=== PATIENT | female | born 1940 | race Caucasian/White ===

== ENCOUNTER 2017-02-10 11:30 | Day surgery (SDC) | payer MEDICARE ==
[2017-02-10] MEDS ORDERED: LIDOCAINE 1% 20 ML VIAL (10MG/ML) FOR IV START INTRADERMA ONE (12:45)
[2017-02-10 12:48] LABS: Glucose,Whole Blood 101 mg/dL (75-99)
[2017-02-10] MEDS ORDERED: KETOROLAC 30 MG/ML 1 ML VIAL ONE (12:51)
[2017-02-10] MEDS ORDERED: PROPOFOL 10 MG/ML 20 ML VIAL IV ONE (12:51)
[2017-02-10] MEDS ORDERED: LACTATED RINGERS 1,000 ML IV ONE (12:52)
[2017-02-10 12:54] VITALS: TEMP 98.8
[2017-02-10 13:31] VITALS: RESP 18
[2017-02-10 14:05] VITALS: BP 134/75; PULSE 65
[2017-02-10 15:26] LABS: Basophils % (A) 1 %; CH 27.6; CHCM 33.3; Eosinophils # (A) 0.1 k/uL (0-0.7); Eosinophils % (A) 2 %; HCT 34.1 % (34.0-46.0); HDW 2.86; HGB 11.7 gm/dL (11.4-16.0); Luc # (Auto) 0.08; Luc % (Auto) 3; Lymphocytes # (A) 0.9 k/uL (1.0-4.8); Lymphocytes % (A) 29 %; MCH 28.6 pg (25.0-35.0); MCHC 34.3 g/dL (31.0-37.0); MCV 83.2 fL (80.0-100.0); Monocytes # (A) 0.2 k/uL (0-1.0); Monocytes % (A) 6 %; Neutrophils # (A) 1.9 k/uL (1.3-7.7); Neutrophils % (A) 60 %; RBC 4.09 m/uL (3.80-5.40); RDW 14.1 % (11.5-15.5); WBC 3.2 k/uL (3.8-10.6); WBC (Perox) 2.84
--- NOTE | 2017-02-11 07:37 | PCN ---
DATE OF PROCEDURE: 02/10/2017 PROCEDURE: Bone marrow aspirate and biopsy. INDICATION: Pancytopenia. After obtaining consent from the patient, the procedure was performed in the endoscopy suite under general anesthesia performed by anesthesia team. The patient was put in the left lateral decubitus position. Right posterior iliac crest was localized. The skin was cleansed with ChloraPrep. All ( ) procedures were followed and 2 mL of 2% Xylocaine was used for local anesthetic. A 5-inch Jamshidi needle was inserted, about 15 mL of aspirate and 1 cm core biopsy was obtained without any difficulties. Pressure applied afterward. There was negligible blood loss. Patient tolerated the procedure very well without any immediate complications.
== END 2017-02-10 14:47 | disposition home or self-care (01) ==
LOC: OR 11:30
PROVIDERS: ATTEND Internal Medicine Hematology & Oncology
DX: D69.6 Thrombocytopenia, unspecified (principal); D75.89 Other specified diseases of blood and blood-forming organs; D72.819 Decreased white blood cell count, unspecified; E11.9 Type 2 diabetes mellitus without complications; Z79.4 Long term (current) use of insulin; E66.3 Overweight; Z68.41 Body mass index [BMI] 40.0-44.9, adult; Z71.3 Dietary counseling and surveillance; I10 Essential (primary) hypertension; E78.5 Hyperlipidemia, unspecified; F32.9 Major depressive disorder, single episode, unspecified; M19.90 Unspecified osteoarthritis, unspecified site; K21.9 Gastro-esophageal reflux disease without esophagitis; Z79.52 Long term (current) use of systemic steroids; Z79.899 Other long term (current) drug therapy; Z88.0 Allergy status to penicillin; Z91.09 Other allergy status, other than to drugs and biological substances
CPT/HCPCS: 85025; 38221; J1885; J2704; G0364

== ENCOUNTER → 2020-12-14 | Outpatient (CLI) | payer MEDICARE ==
--- NOTE | 2020-12-14 14:25 | CT ---
EXAMINATION TYPE: CT brain wo con DATE OF EXAM: 12/14/2020 COMPARISON: None INDICATION: Syncope, fall, bruise right forehead DLP: 1121 mGycm, Automated exposure control for dose reduction was used. CONTRAST: None CT of the brain is performed utilizing 3 mm thick sections through the posterior fossa and 3 mm thick sections through the remaining calvarium. Study is performed within 24 hours of arrival to the hosp [facility]. No abnormal hyperdensity is present to suggest an acute intracranial hemorrhage. No mass lesion is evident. No acute infarcts are evident. Ventricles and sulci are appropriate for the patient age. Paranasal sinuses and mastoid air cells within the [id number] are clear. Hyperostosis frontalis internus is present, a normal variant. No acute fractures are evident. IMPRESSIONS: 1. No acute intracranial process.
== END ==
LOC: RADCTMAIN 09:33
PROVIDERS: ATTEND Nurse Practitioner Family
DX: R55 Syncope and collapse (principal); S06.2X0D Diffuse traumatic brain injury without loss of consciousness, subsequent encounter
CPT/HCPCS: 70450

== ENCOUNTER 2020-12-18 17:32 | Emergency (ER) | payer MEDICARE ==
[2020-12-18] MEDS ORDERED: IBUPROFEN 600 MG TAB PO STA (20:06)
[2020-12-18] MEDS ORDERED: SODIUM CHLORIDE 0.9% 1,000 ML IV STA (20:06)
[2020-12-18] MEDS ORDERED: ACETAMINOPHEN TAB 325 MG TAB PO STA (20:06)
--- NOTE | 2020-12-18 20:15 | ED ---
General Adult HPI - General Chief complaint: Fever Stated complaint: N&D/Cough/Chest tightness Source: patient, RN notes reviewed Mode of arrival: ambulatory Limitations: no limitations - History of Present Illness Initial comments: Patient is an 80-year-old female that presents to emergency department with a cough for approximately one week. She notes that she doesn't have the best memory of her symptoms and that we should ask her daughter if she still has been watching her. She has not been tested for Covid yet. She notes that she's had an irritating cough that been nonproductive. She notes that she did have diarrhea for a couple days approximately 3 days ago. She was in no apparent distress or pain while laying in bed during the exam and interview. She denied any pain currently. She denied any chest pain headache nausea vomiting diarrhea constipation fatigue chills - Related Data Home Medications Medication Instructions Recorded Confirmed ALPRAZolam [Xanax] 0.25 mg PO BID PRN 02/10/17 02/10/17 Hydrocortisone Cream 1 applicate TOPICAL DAILY PRN 02/10/17 02/10/17 [Hydrocortisone 2.5% Cream] Levothyroxine Sodium [Levoxyl] 1 tab PO DAILY 02/10/17 02/10/17 Loratadine 10 mg PO DAILY 02/10/17 02/10/17 Nystatin 100,000 Unit/gm Powd 1 applicate TOPICAL DAILY PRN 02/10/17 02/10/17 [Mycostatin Powder] Omeprazole 20 mg PO DAILY 02/10/17 02/10/17 Sertraline [Zoloft] 100 mg PO DAILY 02/10/17 02/10/17 Simvastatin [Zocor] 20 mg PO DAILY 02/10/17 02/10/17 lisinopriL [Zestril] 2.5 mg PO DAILY 02/10/17 02/10/17 metFORMIN HCL [Glucophage] 1 tab PO DAILY 02/10/17 02/10/17 traMADol HCL [Ultram] 50 mg PO TID PRN 02/10/17 02/10/17 Allergies Allergy/AdvReac Type Severity Reaction Status Date / Time adhesive tape Allergy Rash/Hives Verified 12/18/20 18:02 tetanus and diphtheria Allergy Swelling Verified 12/18/20 18:02 toxoids PCN Allergy Rash/Hives Uncoded 03/23/21 18:02 Review of Systems ROS Statement: Those systems with pertinent positive or pertinent negative responses have been documented in the HPI. ROS Other: All systems not noted in ROS Statement are negative. Past Medical History Past Medical History: Diabetes Mellitus, Eye Disorder, Hearing Disorder / Deafness, Hypertension, Thyroid Disorder Additional Past Medical History / Comment(s): WEARS GLASSES, HX BRONCHITIS, HARD OF HEARING, ARTHRITIS IN BACK History of Any Multi-Drug Resistant Organisms: None Reported Past Surgical History: Cholecystectomy, Orthopedic Surgery Additional Past Surgical History / Comment(s): EXPLORATORY AFTER GALLBLADDER- 1969, TOTAL RT KNEE, TOTAL LT KNEE, ROTATOR CUFF RT SHOULDER, CYSTS REMOVED LT WRIST, HIGH CHOLESTEROL, PANCYTOPENIA Past Psychological History: Depression Smoking Status: Never smoker Past Alcohol Use History: Rare Past Drug Use History: None Reported General Exam Limitations: no limitations General appearance: alert, in no apparent distress Head exam: Present: atraumatic, normocephalic, normal inspection Eye exam: Present: normal appearance, PERRL, EOMI. Absent: scleral icterus, conjunctival injection, periorbital swelling ENT exam: Present: normal exam, mucous membranes moist Neck exam: Present: normal inspection. Absent: tenderness, meningismus, ly mphadenopathy Respiratory exam: Present: normal lung sounds bilaterally. Absent: respiratory distress, wheezes, rales, rhonchi, stridor Cardiovascular Exam: Present: regular rate, normal rhythm, normal heart sounds. Absent: systolic murmur, diastolic murmur, rubs, gallop, clicks GI/Abdominal exam: Present: soft, normal bowel sounds. Absent: distended, tenderness, guarding, rebound, rigid Extremities exam: Present: normal inspection, full ROM, normal capillary refill. Absent: tenderness, pedal edema, joint swelling, calf tenderness Neurological exam: Present: alert, oriented X3, CN II-XII intact Psychiatric exam: Present: normal affect, normal mood Skin exam: Present: warm, dry, intact, normal color, other (Patient has several bruises over her body from a recent fall.). Absent: rash Course Vital Signs 12/18/20 12/18/20 17:57 20:41 Temperature 101.4 F H Pulse Rate 107 H 128 H Respiratory 18 20 Rate Blood Pressure 129/85 139/99 O2 Sat by Pulse 93 L 93 L Oximetry EKG Findings - EKG Comments: EKG Findings:: Ventricular rate 125 bpm, QR shinto 102 ms, QT/QTC 328/433 ms, PRT axes */-29/149. Atrial fibrillation with rapid ventricular response, incomplete right bundle branch block, septal infarct, age undetermined, T-wave abnormality, consider lateral ischemia, abnormal ECG. Medical Decision Making - Medical Decision Making 80-year-old female presented emergency with the cough for approximately one week. Fever of 101.4, 650 mg of Tylenol and 600 mg of Motrin ordered. Labs, chest x-ray, EKG, 1 L of normal saline ordered. Covid positive. Case discussed with Dr. Ewing, patient can discharge home with conservative management. Patient declined wanting to monoclonal antibody treatment. - Lab Data Result diagrams: 12/18/20 20:41 12/18/20 20:41 Lab Results 12/18/20 12/18/20 12/18/20 Range/Units 20:41 20:41 20:41 WBC 2.8 L (3.8-10.6) k/uL RBC 4.37 (3.80-5.40) m/uL Hgb 11.9 (11.4-16.0) gm/dL Hct 38.3 (34.0-46.0) % MCV 87.6 (80.0-100.0) fL MCH 27.4 (25.0-35.0) pg MCHC 31.2 (31.0-37.0) g/dL RDW 14.7 (11.5-15.5) % Plt Count 67 L (150-450) k/uL MPV 8.7 Neutrophils % 63 % Lymphocytes % 29 % Monocytes % 6 % Eosinophils % 0 % Basophils % 0 % Neutrophils # 1.8 (1.3-7.7) k/uL Lymphocytes # 0.8 L (1.0-4.8) k/uL Monocytes # 0.2 (0-1.0) k/uL Eosinophils # 0.0 (0-0.7) k/uL Basophils # 0.0 (0-0.2) k/uL Manual Slide Review Performed RBC Morphology Normal Sodium 132 L (137-145) mmol/L Potassium 3.7 (3.5-5.1) mmol/L Chloride 100 (98-107) mmol/L Carbon Dioxide 21 L (22-30) mmol/L Anion Gap 11 mmol/L BUN 27 H (7-17) mg/dL Creatinine 1.27 H (0.52-1.04) mg/dL Est GFR (CKD-EPI)AfAm 46 (>60 ml/min/1.73 sqM) Est GFR (CKD-EPI)NonAf 40 (>60 ml/min/1.73 sqM) Glucose 97 (74-99) mg/dL Calcium 8.7 (8.4-10.2) mg/dL Total Bilirubin 1.9 H (0.2-1.3) mg/dL AST 58 H (14-36) U/L ALT 22 (4-34) U/L Alkaline Phosphatase 95 (38-126) U/L Total Protein 7.6 (6.3-8.2) g/dL Albumin 4.0 (3.5-5.0) g/dL Coronavirus (PCR) Detected A (Not Detectd) - EKG Data -: EKG Interpreted by [facility] EKG Comments: Ventricular rate 125 bpm, QR shinto 102 ms, QT/QTC 328/433 ms, P-R-T axes */-29/149. Atrial fibrillation with rapid ventricular response, incomplete right bundle branch block, septal infarct, age undetermined, T-wave abnormality, consider lateral ischemia, abnormal ECG. - Radiology Data Radiology results: report reviewed, image reviewed Chest x-ray: There is moderate interstitial edema superimposed hazy opacities. No pleural effusion or pneumothorax seen. The cardiac silhouette size is mildly enlarged. Osseous structures are intact. Disposition Clinical Impression: COVID-19 Disposition: HOME SELF-CARE Condition: Stable Instructions (If sedation given, give patient instructions): Fever in Adults (ED), Coronavirus Disease 2019 (COVID-19) Additional Instructions: Please return to the Emergency Department if symptoms worsen or any other concerns. Follow-up with primary care in 3-5 days. Per CDC guidelines quarantine for 10-14 days. Use [id number] anti-inflammatories for symptomatic and fever control. Increase oral fluid intake to at least 100 ounces. Is patient prescribed a controlled substance at d/c from ED?: No Referrals: Deena Monsalve MD [Primary Care Provider] - 1-2 days Time of Disposition: 21:44
[2020-12-18 20:52] LABS: Basophils % (A) 0 %; Eosinophils % (A) 0 %; HCT 38.3 % (34.0-46.0); HGB 11.9 gm/dL (11.4-16.0); Lymphocytes # (A) 0.8 k/uL (1.0-4.8); Lymphocytes % (A) 29 %; MCH 27.4 pg (25.0-35.0); MCHC 31.2 g/dL (31.0-37.0); MCV 87.6 fL (80.0-100.0); Mean Platelet Volume 8.7; Monocytes # (A) 0.2 k/uL (0-1.0); Monocytes % (A) 6 %; Neutrophils # (A) 1.8 k/uL (1.3-7.7); Neutrophils % (A) 63 %; RBC 4.37 m/uL (3.80-5.40); RDW 14.7 % (11.5-15.5); WBC 2.8 k/uL (3.8-10.6)
[2020-12-18 21:01] LABS: Calcium 8.7 mg/dL (8.4-10.2); Potassium 3.7 mmol/L (3.5-5.1); Total Bilirubin 1.9 mg/dL (0.2-1.3); Total Protein 7.6 g/dL (6.3-8.2)
--- NOTE | 2020-12-18 21:03 | XR ---
EXAMINATION TYPE: XR chest 2V DATE OF EXAM: 12/18/2020 COMPARISON: NONE HISTORY: Cough and fever. TECHNIQUE: Frontal and lateral views of the chest are obtained. FINDINGS: There is moderate interstitial edema with superimposed hazy opacities. No pleural effusion , or pneumothorax seen. The cardiac silhouette size is mildly enlarged. The osseous structures are intact. IMPRESSION: Interstitial edema with superimposed infiltrates not excluded.
[2020-12-18 21:20] LABS: Platelet Count 67 k/uL (150-450)
[2020-12-18 21:54] VITALS: TEMP 99.5
[2020-12-18 22:48] VITALS: BP 100/67; PULSE 103; RESP 16
== END 2020-12-18 22:50 | disposition home or self-care (01) ==
LOC: EC 17:32
DX: U07.1 COVID-19 (principal); E11.9 Type 2 diabetes mellitus without complications; I10 Essential (primary) hypertension; H91.90 Unspecified hearing loss, unspecified ear; E78.00 Pure hypercholesterolemia, unspecified; F32.9 Major depressive disorder, single episode, unspecified
CPT/HCPCS: 71046; 80053; 85025; 87635; 93005; 96360; 99284

== ENCOUNTER 2020-12-25 13:58 | Inpatient (IN) | payer MEDICARE ==
[2020-12-25] MEDS ORDERED: DILTIAZEM DRIP BOLUS FROM BAG 1 MG SOLN IV ONE (14:08)
[2020-12-25] MEDS ORDERED: SODIUM CHLORIDE 0.9% 1,000 ML IV STA ×2 (14:08)
[2020-12-25] MEDS: DILTIAZEM 125 MG in SODIUM CHLORIDE 0.9% 100 ML IV SCH (14:22)
--- NOTE | 2020-12-25 14:31 | ED ---
Weakness HPI - General Chief complaint: Weakness Stated complaint: Afib/RVR Covid+ Time Seen by Provider: 12/25/20 14:00 Source: patient, EMS, RN notes reviewed, old records reviewed Mode of arrival: EMS Limitations: no limitations - History of Present Illness Initial comments: This 80-year-old female who presents by EMS complaints of weakness unable to walk very well feeling thrive 90 very well she was diagnosed with Covid 19 about a week ago at this facility. She was brought in by EMS and noted to be in atrial fibrillation with rapid ventricular response. She is not sure if she is ever had this before she denies any chest pain this weakness some shortness of breath. She also states she fell about 2-3 weeks ago and does have some bruising to her right chest wall and right arm as well as she states she has a lot of bruising to her lower extremities. He relates this to her diabetes. MD Complaint: generalized weakness - Related Data Home Medications Medication Instructions Recorded Confirmed ALPRAZolam [Xanax] 0.25 mg PO BID PRN 02/10/17 12/25/20 Levothyroxine Sodium [Levoxyl] 125 mcg PO DAILY 02/10/17 12/25/20 Omeprazole 20 mg PO DAILY 02/10/17 12/25/20 Simvastatin [Zocor] 20 mg PO DAILY 02/10/17 12/25/20 metFORMIN HCL [Glucophage] 500 mg PO DAILY 02/10/17 12/25/20 traMADol HCL [Ultram] 50 mg PO TID PRN 02/10/17 12/25/20 Albuterol Sulfate [Ventolin HFA] 2 puff INHALATION RT-Q4H PRN 12/25/20 12/25/20 Aspirin EC [Ecotrin Low Dose] 81 mg PO DAILY 12/25/20 12/25/20 Benzonatate [Tessalon Perles] 100 mg PO TID PRN 12/25/20 12/25/20 Citalopram Hydrobromide [CeleXA] 20 mg PO DAILY 12/25/20 12/25/20 Furosemide [Lasix] 20 mg PO DAILY 12/25/20 12/25/20 Triamcinolone 0.1% Cream [Kenalog 1 applicatio TOPICAL TID 12/25/20 12/25/20 0.1% Cream] lisinopriL [Zestril] 5 mg PO DAILY 12/25/20 12/25/20 Allergies Allergy/AdvReac Type Severity Reaction Status Date / Time adhesive tape Allergy Rash/Hives Verified 12/25/20 15:48 tetanus and diphtheria Allergy Swelling Verified 12/25/20 15:48 toxoids PCN Allergy Rash/Hives Uncoded 12/25/20 14:13 Review of Systems ROS Statement: Those systems with pertinent positive or pertinent negative responses have been documented in the HPI. ROS Other: All systems not noted in ROS Statement are negative. Past Medical History Past Medical History: Diabetes Mellitus, Eye Disorder, Hearing Disorder / Deafness, Hypertension, Thyroid Disorder Additional Past Medical History / Comment(s): WEARS GLASSES, HX BRONCHITIS, HARD OF HEARING, ARTHRITIS IN BACK History of Any Multi-Drug Resistant Organisms: None Reported Past Surgical History: Cholecystectomy, Orthopedic Surgery Additional Past Surgical History / Comment(s): EXPLORATORY AFTER GALLBLADDER- 1969, TOTAL RT KNEE, TOTAL LT KNEE, ROTATOR CUFF RT SHOULDER, CYSTS REMOVED LT WRIST, HIGH CHOLESTEROL, PANCYTOPENIA Past Psychological History: Depression Smoking Status: Never smoker Past Alcohol Use History: None Reported Past Drug Use History: None Reported General Exam - General Exam Comments Initial Comments: This is a well-developed well-nourished awake alert oriented 3 female Limitations: no limitations General appearance: alert, in no apparent distress Head exam: Present: atraumatic, normocephalic, normal inspection Eye exam: Present: normal appearance, PERRL, EOMI. Absent: scleral icterus, conjunctival injection, periorbital swelling ENT exam: Present: mucous membranes dry Neck exam: Present: normal inspection, full ROM, other (No stridor JVD or bruits). Absent: tenderness, meningismus, lymphadenopathy Respiratory exam: Present: normal lung sounds bilaterally, chest wall tenderness (Excessive bruising seen to the right anterior chest wall as well as right arm proximally. No overt step-off or crepitation 4H Aubrey the right shoulder.), other. Absent: respiratory distress, wheezes, rales, rhonchi, stridor Cardiovascular Exam: Present: tachycardia, irregular rhythm. Absent: systolic murmur, diastolic murmur, rubs, gallop, clicks GI/Abdominal exam: Present: soft, normal bowel sounds. Absent: distended, tenderness, guarding, rebound, rigid Extremities exam: Present: full ROM, normal capillary refill, other (Or show any bruising noted.). Absent: tenderness, pedal edema, joint swelling, calf tenderness Back exam: Present: normal inspection Neurological exam: Present: alert, oriented X3, CN II-XII intact Psychiatric exam: Present: normal affect, normal mood Skin exam: Present: warm, dry, intact, other (As noted above). Absent: rash Course Vital Signs 12/25/20 12/25/20 14:06 16:01 Temperature 98.3 F Pulse Rate 128 H 105 H Respiratory 20 18 Rate Blood Pressure 143/100 131/76 O2 Sat by Pulse 96 96 Oximetry - Reevaluation(s) Reevaluation #1: 12/25/20 16:36 Patient still persists in atrial fibrillation. He admitted I did discuss case with Dr. Doherty Reevaluation #2: 12/25/20 16:37 Does have elevated d-dimer a CT is pending. Reevaluation #3: 12/25/20 16:38 Patient believes she may have a contrast reaction with a premedication. EKG Findings - EKG Results: EKG: interpreted by [facility] (Atrial fibrillation rate of 126 QRS 94 QT since QTC 328/[address]-T wave configuration) Medical Decision Making - Lab Data Result diagrams: 12/25/20 14:35 12/25/20 14:35 Lab Results 12/25/20 12/25/20 12/25/20 Range/Units 14:35 14:35 14:35 WBC 3.4 L (3.8-10.6) k/uL RBC 4.48 (3.80-5.40) m/uL Hgb 13.4 (11.4-16.0) gm/dL Hct 39.1 (34.0-46.0) % MCV 87.3 (80.0-100.0) fL MCH 29.9 (25.0-35.0) pg MCHC 34.3 (31.0-37.0) g/dL RDW 15.0 (11.5-15.5) % Plt Count 125 L D (150-450) k/uL MPV 8.7 Neutrophils % 65 % Lymphocytes % 24 % Monocytes % 5 % Eosinophils % 1 % Basophils % 1 % Neutrophils # 2.2 (1.3-7.7) k/uL Lymphocytes # 0.8 L (1.0-4.8) k/uL Monocytes # 0.2 (0-1.0) k/uL Eosinophils # 0.0 (0-0.7) k/uL Basophils # 0.0 (0-0.2) k/uL PT 12.4 H (9.0-12.0) sec INR 1.2 H (<1.2) APTT 24.0 (22.0-30.0) sec D-Dimer 14.61 H (<0.60) mg/L FEU Sodium 138 (137-145) mmol/L Potassium 3.6 (3.5-5.1) mmol/L Chloride 102 (98-107) mmol/L Carbon Dioxide 26 (22-30) mmol/L Anion Gap 10 mmol/L BUN 27 H (7-17) mg/dL Creatinine 1.10 H (0.52-1.04) mg/dL Est GFR (CKD-EPI)AfAm 55 (>60 ml/min/1.73 sqM) Est GFR (CKD-EPI)NonAf 48 (>60 ml/min/1.73 sqM) Glucose 97 (74-99) mg/dL Plasma Lactic Acid [place] (0.7-2.0) mmol/L Calcium 9.0 (8.4-10.2) mg/dL Magnesium 1.8 (1.6-2.3) mg/dL Total Bilirubin 1.9 H (0.2-1.3) mg/dL AST 38 H (14-36) U/L ALT 16 (4-34) U/L Alkaline Phosphatase 78 (38-126) U/L Lactate Dehydrogenase 824 H (313-618) U/L Creatine Kinase 71 (30-135) U/L Troponin I (0.000-0.034) ng/mL C-Reactive Protein 44.0 H (<10.0) mg/L Total Protein 7.4 (6.3-8.2) g/dL Albumin 3.6 (3.5-5.0) g/dL 12/25/20 12/25/20 Range/Units 14:35 14:35 WBC (3.8-10.6) k/uL RBC (3.80-5.40) m/uL Hgb (11.4-16.0) gm/dL Hct (34.0-46.0) % MCV (80.0-100.0) fL MCH (25.0-35.0) pg MCHC (31.0-37.0) g/dL RDW (11.5-15.5) % Plt Count (150-450) k/uL MPV Neutrophils % % Lymphocytes % % Monocytes % % Eosinophils % % Basophils % % Neutrophils # (1.3-7.7) k/uL Lymphocytes # (1.0-4.8) k/uL Monocytes # (0-1.0) k/uL Eosinophils # (0-0.7) k/uL Basophils # (0-0.2) k/uL PT (9.0-12.0) sec INR (<1.2) APTT (22.0-30.0) sec D-Dimer (<0.60) mg/L FEU Sodium (137-145) mmol/L Potassium (3.5-5.1) mmol/L Chloride (98-107) mmol/L Carbon Dioxide (22-30) mmol/L Anion Gap mmol/L BUN (7-17) mg/dL Creatinine (0.52-1.04) mg/dL Est GFR (CKD-EPI)AfAm (>60 ml/min/1.73 sqM) Est GFR (CKD-EPI)NonAf (>60 ml/min/1.73 sqM) Glucose (74-99) mg/dL Plasma Lactic Acid Wil[place] 1.5 (0.7-2.0) mmol/L Calcium (8.4-10.2) mg/dL Magnesium (1.6-2.3) mg/dL Total Bilirubin (0.2-1.3) mg/dL AST (14-36) U/L ALT (4-34) U/L Alkaline Phosphatase (38-126) U/L Lactate Dehydrogenase (313-618) U/L Creatine Kinase (30-135) U/L Troponin I <0.012 (0.000-0.034) ng/mL C-Reactive Protein (<10.0) mg/L Total Protein (6.3-8.2) g/dL Albumin (3.5-5.0) g/dL Critical Care Time Critical Care Time: Yes Total Critical Care Time: 37 Critical Care Time: Critical care time includes initial presentation with history physical labs x- rays discussed with paramedics upon arrival evaluation the patient response to therapy discussion with the admitting physician admission orders and documentation of the above Disposition Clinical Impression: Rapid atrial fibrillation, Dehydration, Failure to thrive in adult, COVID-19, Weakness Disposition: ADMITTED IP TO THIS [facility] Condition: Fair Referrals: Deena Monsalve MD [Primary Care Provider] - 1-2 days
[2020-12-25 14:39] LABS: Basophils % (A) 1 %; Eosinophils % (A) 1 %; HCT 39.1 % (34.0-46.0); HGB 13.4 gm/dL (11.4-16.0); Lymphocytes # (A) 0.8 k/uL (1.0-4.8); Lymphocytes % (A) 24 %; MCH 29.9 pg (25.0-35.0); MCHC 34.3 g/dL (31.0-37.0); MCV 87.3 fL (80.0-100.0); Mean Platelet Volume 8.7; Monocytes # (A) 0.2 k/uL (0-1.0); Monocytes % (A) 5 %; Neutrophils # (A) 2.2 k/uL (1.3-7.7); Neutrophils % (A) 65 %; RBC 4.48 m/uL (3.80-5.40); WBC 3.4 k/uL (3.8-10.6)
[2020-12-25 14:53] LABS: Albumin 3.6 g/dL (3.5-5.0); Magnesium 1.8 mg/dL (1.6-2.3); Platelet Count 125 k/uL (150-450); Potassium 3.6 mmol/L (3.5-5.1); Total Bilirubin 1.9 mg/dL (0.2-1.3); Total Protein 7.4 g/dL (6.3-8.2)
[2020-12-25 14:58] LABS: INR 1.2 (<1.2); Prothrombin Time 12.4 sec (9.0-12.0)
[2020-12-25 15:01] LABS: D-Dimer 14.61 mg/L FEU (<0.60)
--- NOTE | 2020-12-25 15:50 | XR ---
EXAMINATION TYPE: XR chest 2V DATE OF EXAM: 12/25/2020 COMPARISON: 12/18/2020 HISTORY: 80-year-old female dysrhythmia TECHNIQUE: AP and lateral views FINDINGS: Heart is enlarged. Diffuse interstitial and vascular prominence. No marcela consolidation or pleural ef fusion. 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 IMPRESSION: Cardiomegaly and interstitial/vascular prominence. Correlate for CHF with pulmonary vascular congesti on.
[2020-12-25] MEDS ORDERED: FAMOTIDINE 20 MG/2 ML VIAL IV STA (16:31)
[2020-12-25] MEDS ORDERED: diphenhydrAMINE 50 MG/ML 1 ML VIAL IVP STA (16:31)
[2020-12-25] MEDS ORDERED: methylPREDNISolone SOD SUCCI 125 MG/2 ML VIAL IV STA (16:31)
[2020-12-25] MEDS ORDERED: NALOXONE 0.4 MG/ML 1 ML VIAL IV PRN ×2 (16:39→18:01)
[2020-12-25] MEDS ORDERED: ALPRAZolam 0.25 MG TAB PO PRN (16:42)
[2020-12-25] MEDS ORDERED: ALBUTEROL HFA INHALER INHALATION PRN (16:42)
[2020-12-25] MEDS ORDERED: HEPARIN SODIUM,PORCINE 5,000 UNIT/ML 1 ML VIAL IV ONE (16:43)
[2020-12-25] MEDS ORDERED: HEPARIN SODIUM,PORCINE 5,000 UNIT/ML 1 ML VIAL IV PRN (16:43)
--- NOTE | 2020-12-25 17:39 | CT ---
EXAMINATION TYPE: CT angio chest DATE OF EXAM: 12/25/2020 COMPARISON: None HISTORY: elevated dimer CT DLP: 555.7 mGycm Automated exposure control for dose reduction was used. CONTRAST: Performed with IV Contrast, patient injected with 80 mL of Isovue 370. Images obtained from the thoracic inlet to the diaphragm with IV contrast. There are 3-D post process ing. FINDINGS: There is patchy peripheral pulmonary interstitial and airspace infiltrates. Heart is enlarged. There is no pericardial effusion. There is no pleural effusion. There are enlarged bronchial lymph nodes that measure up to 1.5 cm. There are multiple filling defects in the right lower lobe pulmonary artery. There is no mediastinal adenopathy. Thoracic aorta shows no dissection. Ascending aorta measures 3.8 cm. There is some spurring in the thoracic spine. IMPRESSION: Large embolism in the right lower lobe pulmonary artery. Cardiomegaly. I do not see convincing eviden ce for right heart strain. Extensive bilateral pulmonary airspace and interstitial infiltrates consistent with pneumonia. This exam was discussed with Dr. Olguin at 5:45 PM.
--- NOTE | 2020-12-25 17:44 | ED ---
Medical Decision Making - Medical Decision Making CT was reviewed and discussed with the radiologist patient does have evidence of a right pulmonary artery clot. Patient will be treated for this also. The admitting physicians made aware - Lab Data Result diagrams: 12/25/20 14:35 12/25/20 14:35 Lab Results 12/25/20 12/25/20 12/25/20 Range/Units 14:35 14:35 14:35 WBC 3.4 L (3.8-10.6) k/uL RBC 4.48 (3.80-5.40) m/uL Hgb 13.4 (11.4-16.0) gm/dL Hct 39.1 (34.0-46.0) % MCV 87.3 (80.0-100.0) fL MCH 29.9 (25.0-35.0) pg MCHC 34.3 (31.0-37.0) g/dL RDW 15.0 (11.5-15.5) % Plt Count 125 L D (150-450) k/uL MPV 8.7 Neutrophils % 65 % Lymphocytes % 24 % Monocytes % 5 % Eosinophils % 1 % Basophils % 1 % Neutrophils # 2.2 (1.3-7.7) k/uL Lymphocytes # 0.8 L (1.0-4.8) k/uL Monocytes # 0.2 (0-1.0) k/uL Eosinophils # 0.0 (0-0.7) k/uL Basophils # 0.0 (0-0.2) k/uL PT 12.4 H (9.0-12.0) sec INR 1.2 H (<1.2) APTT 24.0 (22.0-30.0) sec D-Dimer 14.61 H (<0.60) mg/L FEU Sodium 138 (137-145) mmol/L Potassium 3.6 (3.5-5.1) mmol/L Chloride 102 (98-107) mmol/L Carbon Dioxide 26 (22-30) mmol/L Anion Gap 10 mmol/L BUN 27 H (7-17) mg/dL Creatinine 1.10 H (0.52-1.04) mg/dL Est GFR (CKD-EPI)AfAm 55 (>60 ml/min/1.73 sqM) Est GFR (CKD-EPI)NonAf 48 (>60 ml/min/1.73 sqM) Glucose 97 (74-99) mg/dL Plasma Lactic Acid Wil[place] (0.7-2.0) mmol/L Calcium 9.0 (8.4-10.2) mg/dL Magnesium 1.8 (1.6-2.3) mg/dL Total Bilirubin 1.9 H (0.2-1.3) mg/dL AST 38 H (14-36) U/L ALT 16 (4-34) U/L Alkaline Phosphatase 78 (38-126) U/L Lactate Dehydrogenase 824 H (313-618) U/L Creatine Kinase 71 (30-135) U/L Troponin I (0.000-0.034) ng/mL C-Reactive Protein 44.0 H (<10.0) mg/L Total Protein 7.4 (6.3-8.2) g/dL Albumin 3.6 (3.5-5.0) g/dL Coronavirus (PCR) (Not Detectd) 12/25/20 12/25/20 12/25/20 Range/Units 14:35 14:35 16:36 WBC (3.8-10.6) k/uL RBC (3.80-5.40) m/uL Hgb (11.4-16.0) gm/dL Hct (34.0-46.0) % MCV (80.0-100.0) fL MCH (25.0-35.0) pg MCHC (31.0-37.0) g/dL RDW (11.5-15.5) % Plt Count (150-450) k/uL MPV Neutrophils % % Lymphocytes % % Monocytes % % Eosinophils % % Basophils % % Neutrophils # (1.3-7.7) k/uL Lymphocytes # (1.0-4.8) k/uL Monocytes # (0-1.0) k/uL Eosinophils # (0-0.7) k/uL Basophils # (0-0.2) k/uL PT (9.0-12.0) sec INR (<1.2) APTT (22.0-30.0) sec D-Dimer (<0.60) mg/L FEU Sodium (137-145) mmol/L Potassium (3.5-5.1) mmol/L Chloride (98-107) mmol/L Carbon Dioxide (22-30) mmol/L Anion Gap mmol/L BUN (7-17) mg/dL Creatinine (0.52-1.04) mg/dL Est GFR (CKD-EPI)AfAm (>60 ml/min/1.73 sqM) Est GFR (CKD-EPI)NonAf (>60 ml/min/1.73 sqM) Glucose (74-99) mg/dL Plasma Lactic Acid [place] 1.5 (0.7-2.0) mmol/L Calcium (8.4-10.2) mg/dL Magnesium (1.6-2.3) mg/dL Total Bilirubin (0.2-1.3) mg/dL AST (14-36) U/L ALT (4-34) U/L Alkaline Phosphatase (38-126) U/L Lactate Dehydrogenase (313-618) U/L Creatine Kinase (30-135) U/L Troponin I <0.012 (0.000-0.034) ng/mL C-Reactive Protein (<10.0) mg/L Total Protein (6.3-8.2) g/dL Albumin (3.5-5.0) g/dL Coronavirus (PCR) Detected A (Not Detectd) Disposition Clinical Impression: Rapid atrial fibrillation, Dehydration, Failure to thrive in adult, COVID-19, Weakness, Pulmonary embolism Disposition: ADMITTED IP TO THIS [facility] Condition: Fair
[2020-12-25] MEDS ORDERED: traMADol 50 MG TAB PO PRN (18:00)
--- NOTE | 2020-12-25 18:42 | P.HPIM ---
History of Present Illness H&P Date: 12/25/20 Chief Complaint: tachcardia, falls 80-year-old female who presents for weakness, shortness of breath, nausea. No chest pain. Patient was diagnosed with Covid 19 about a week ago at this facility. She did mention having 2 loose bowel movements. She also states she fell about 2-3 weeks ago and does have some bruising to her right chest wall and right arm as well as a lot of bruising to her lower extremities. No history of heart or lung disease. Evaluation in the emergency department revealed heart rate in the 120s. EKG showed atrial fibrillation with rapid ventricular response. Blood pressure okay. Labs were reviewed. CT angiogram of the chest showed right pulmonary artery pulmonary embolus. Patient was started on Cardizem and heparin drips and was admitted for further evaluation and management. Review of Systems Complete review of system performed, pertinent positives per HPI, otherwise negative Past Medical History Past Medical History: Diabetes Mellitus, Eye Disorder, Hearing Disorder / Deafness, Hypertension, Thyroid Disorder Additional Past Medical History / Comment(s): WEARS GLASSES, HX BRONCHITIS, HARD OF HEARING, ARTHRITIS IN BACK History of Any Multi-Drug Resistant Organisms: None Reported Past Surgical History: Cholecystectomy, Orthopedic Surgery Additional Past Surgical History / Comment(s): EXPLORATORY AFTER GALLBLADDER- 1968, TOTAL RT KNEE, TOTAL LT KNEE, ROTATOR CUFF RT SHOULDER, CYSTS REMOVED LT WRIST, HIGH CHOLESTEROL, PANCYTOPENIA Past Psychological History: Depression Smoking Status: Never smoker Past Alcohol Use History: None Reported Past Drug Use History: None Reported Medications and Allergies Home Medications Medication Instructions Recorded Confirmed Type ALPRAZolam [Xanax] 0.25 mg PO BID PRN 02/10/17 12/25/20 History Levothyroxine Sodium [Levoxyl] 125 mcg PO DAILY 02/10/17 12/25/20 History Omeprazole 20 mg PO DAILY 02/10/17 12/25/20 History Simvastatin [Zocor] 20 mg PO DAILY 02/10/17 12/25/20 History metFORMIN HCL [Glucophage] 500 mg PO DAILY 02/10/17 12/25/20 History traMADol HCL [Ultram] 50 mg PO TID PRN 02/10/17 12/25/20 History Albuterol Sulfate [Ventolin HFA] 2 puff INHALATION RT-Q4H PRN 12/25/20 12/25/20 History Aspirin EC [Ecotrin Low Dose] 81 mg PO DAILY 12/25/20 12/25/20 History Benzonatate [Tessalon Perles] 100 mg PO TID PRN 12/25/20 12/25/20 History Citalopram Hydrobromide [CeleXA] 20 mg PO DAILY 12/25/20 12/25/20 History Furosemide [Lasix] 20 mg PO DAILY 12/25/20 12/25/20 History Triamcinolone 0.1% Cream [Kenalog 1 applicatio TOPICAL TID 12/25/20 12/25/20 History 0.1% Cream] lisinopriL [Zestril] 5 mg PO DAILY 12/25/20 12/25/20 History Allergies Allergy/AdvReac Type Severity Reaction Status Date / Time adhesive tape Allergy Rash/Hives Verified 12/25/20 16:50 Iodinated Contrast Media Allergy Unknown Verified 12/25/20 16:50 tetanus and diphtheria Allergy Swelling Verified 12/25/20 16:50 toxoids PCN Allergy Rash/Hives Uncoded 12/25/20 16:50 Physical Exam Vitals: Vital Signs Temp Pulse Resp BP Pulse Ox 12/25/20 16:01 105 H 18 131/76 96 12/25/20 14:06 98.3 F 128 H 20 143/100 96 Intake and Output 12/25/20 12/25/20 12/25/20 06:59 14:59 22:59 Other: Weight 96.162 kg Constitutional: No acute distress, conversant, pleasant Eyes:Anicteric sclerae, moist conjunctiva, no lid-lag, PERRLA, ENMT: Oropharynx clear, no erythema, exudates Neck: Supple, FROM, no masses, or JVD, No carotid bruits, No thyromegaly Lungs: Scattered wheezing and rhonchi, Clear to percussion, Normal respiratory effort, no accessory muscle use Cardiovascular: Heart regular in rate and rhythm, No murmurs, gallops, or rubs, No peripheral edema Abdominal: Soft, Nontender, no guarding, rebound or rigidity, Normoactive bowel sounds, No hepatomegaly, No splenomegaly, No palpable mass Skin: Normal temperature, tone, texture, turgor, no induration, No subcutaneous nodules, No rash, lesions, No ulcers Extremities: No digital cyanosis, No clubbing, Pedal pulses intact and symmetrical, Radial pulses intact and symmetrical, No calf tenderness Psychiatric: Alert and oriented to person, place and time, appropriate affect, intact judgement Neuro: Muscles Strength 5/5 in all 4 extremities, Sensation to light touch grossly present throughout, Cranial nerves II-XII grossly intact, no focal sensory deficits Results CBC & Chem 7: 12/25/20 14:35 12/25/20 14:35 Labs: Abnormal Lab Results - Last 24 Hours (Table) 12/25/20 12/25/20 12/25/20 Range/Units 14:35 14:35 14:35 WBC 3.4 L (3.8-10.6) k/uL Plt Count 125 L D (150-450) k/uL Lymphocytes # 0.8 L (1.0-4.8) k/uL PT 12.4 H (9.0-12.0) sec INR 1.2 H (<1.2) D-Dimer 14.61 H (<0.60) mg/L FEU BUN 27 H (7-17) mg/dL Creatinine 1.10 H (0.52-1.04) mg/dL Total Bilirubin 1.9 H (0.2-1.3) mg/dL AST 38 H (14-36) U/L Lactate Dehydrogenase 824 H (313-618) U/L C-Reactive Protein 44.0 H (<10.0) mg/L Coronavirus (PCR) (Not Detectd) 12/25/20 Range/Units 16:36 WBC (3.8-10.6) k/uL Plt Count (150-450) k/uL Lymphocytes # (1.0-4.8) k/uL PT (9.0-12.0) sec INR (<1.2) D-Dimer (<0.60) mg/L FEU BUN (7-17) mg/dL Creatinine (0.52-1.04) mg/dL Total Bilirubin (0.2-1.3) mg/dL AST (14-36) U/L Lactate Dehydrogenase (313-618) U/L C-Reactive Protein (<10.0) mg/L Coronavirus (PCR) Detected A (Not Detectd) Assessment and Plan Plan: Acute right pulmonary artery embolus Heparin drip Switch to oral anticoagulation once stable Covid 19 pneumonia/acute hypoxemic respiratory failure Currently requiring 2 L of nasal cannula Consult pulmonary Out of the window for any remdisivir treatment Decadron 6 mg IV daily Atrial fibrillation with rapid ventricular response Cardizem drip Heparin drip Consult cardiology Echo Diabetes type 2 Sliding scale insulin Lantus 10 units daily Hold oral hypoglycemics Chronic Hypertension, Thyroid Disorder Stable Resume meds Patient admitted to inpatient status, expected length of stay more than 2 midnights
[2020-12-25] MEDS: HEPARIN SOD,PORK IN 0.45% NACL 25,000 UNIT in 0.45% NACL 1 250ML.BAG IV SCH (19:21)
[2020-12-25] MEDS: BENZONATATE 100 MG CAP PO PRN (20:11)
[2020-12-25] MEDS: DEXAMETHASONE SOD PHOSPHATE 10 MG/ML 1 ML VIAL IV SCH (20:12)
[2020-12-25] MEDS ORDERED: INSULIN DETEMIR (LEVEMIR) 100 UNIT/ML SYR SQ SCH (21:00)
[2020-12-25 21:09] LABS: Glucose,Whole Blood 165 mg/dL (75-99)
[2020-12-25] MEDS: INSULIN ASPART (NovoLOG) 100 UNIT/ML VIAL SQ SCH (21:33)
[2020-12-26 00:14] LABS: Ferritin 146.4 ng/mL (10.0-291.0)
[2020-12-26] MEDS: BENZONATATE 100 MG CAP PO PRN ×2 (03:53→20:46)
[2020-12-26 06:06] LABS: Glucose,Whole Blood 286 mg/dL (75-99)
[2020-12-26] MEDS: LEVOTHYROXINE 125 MCG TAB PO SCH (06:29)
[2020-12-26] MEDS: INSULIN ASPART (NovoLOG) 100 UNIT/ML VIAL SQ SCH ×4 (06:29→20:46)
[2020-12-26] MEDS: DILTIAZEM 125 MG in SODIUM CHLORIDE 0.9% 100 ML IV SCH (06:29)
[2020-12-26] MEDS: PANTOPRAZOLE 40 MG TABLET PO SCH (06:29)
[2020-12-26 06:37] LABS: Amorphous Sediment,Urine Rare /hpf; Appearance,Urine Cloudy (Clear); Bacteria,Urine Many /hpf; Bilirubin,Urine Negative (Negative); Blood,Urine Negative (Negative); Color,Urine Yellow; Glucose,Urine (UA) Negative (Negative); Hyaline Casts,Urine 3 /lpf (0-2); Ketones,Urine Negative (Negative); Leukocyte Esterase,Urine Negative (Negative); Mucus,Urine Occasional /hpf; Nitrite,Urine Negative (Negative); Protein,Urine Trace (Negative); RBC,Urine 1 /hpf (0-5); Specific Gravity,Urine 1.033 (1.001-1.035); Squamous Epithelial Cell,Urine <1 /hpf (0-4); WBC,Urine 2 /hpf (0-5)
[2020-12-26 07:44] LABS: Basophils % (A) 0 %; Eosinophils % (A) 0 %; HCT 35.5 % (34.0-46.0); HGB 12.1 gm/dL (11.4-16.0); Lymphocytes # (A) 0.4 k/uL (1.0-4.8); Lymphocytes % (A) 18 %; MCH 30.1 pg (25.0-35.0); MCHC 34.2 g/dL (31.0-37.0); Mean Platelet Volume 9.3; Monocytes % (A) 1 %; Neutrophils # (A) 1.7 k/uL (1.3-7.7); Neutrophils % (A) 77 %; Platelet Count 110 k/uL (150-450); RBC 4.03 m/uL (3.80-5.40); RDW 14.5 % (11.5-15.5); WBC 2.2 k/uL (3.8-10.6)
[2020-12-26 08:20] LABS: Calcium 8.6 mg/dL (8.4-10.2); Potassium 4.2 mmol/L (3.5-5.1)
[2020-12-26] MEDS: FUROSEMIDE 20 MG TAB PO SCH (08:38)
[2020-12-26] MEDS: CITALOPRAM HYDROBROMIDE 20 MG TAB PO SCH (08:38)
[2020-12-26] MEDS: lisinopriL 5 MG TAB PO SCH (08:38)
[2020-12-26] MEDS: ATORVASTATIN 10 MG TAB PO SCH (08:38)
[2020-12-26] MEDS: ASPIRIN 81 MG PO SCH (08:38)
[2020-12-26] MEDS: DEXAMETHASONE SOD PHOSPHATE 10 MG/ML 1 ML VIAL IV SCH (08:38)
[2020-12-26] MEDS: METOPROLOL SUCCINATE (ER) 25 MG TAB.ER.24H PO SCH (08:45)
[2020-12-26] MEDS ORDERED: metFORMIN 500 MG TAB PO SCH (09:00)
--- NOTE | 2020-12-26 10:01 | P.CRDCN ---
History of Present Illness Consult date: 12/26/20 History of present illness: CHIEF COMPLAINT: A. fib with RVR HISTORY OF PRESENT ILLNESS: This is a 80-year-old female with a past medical history significant for diabetes mellitus, hypertension, hypothyroidism, and depression. Patient does not follow with a paper box cutter. We have been asked to see the patient in consultation for A. fib with RVR. Patient is admitted to the hospital secondary to Covid 19. EKG on admission revealed atrial fibrillation with RVR. Patient does not have a history of atrial fibrillation. Patient was started on IV heparin and IV Cardizem. Patient remains in atrial fibrillation this morning with a heart rate in the 60s. blood pressure 105/73. Patient is on 2 L nasal cannula with oxygen saturations greater than 92%. She is afebrile. DIAGNOSTICS: EKG reveals atrial fibrillation with RVR Chest xray cardiomegaly and interstitial/vascular prominence. Correlate for CHF with pulmonary vascular congestion Laboratory data: WBC 2.2. Hemoglobin 12.1. Platelet count 110. Sodium 135. Potassium 4.2. BUN 25. Creatinine 1.02. CTA: Large pulmonary embolism and right lower lobe pulmonary artery. No evidence of right heart strain. Current home cardiac medications include lisinopril 5 mg daily, simvastatin 20 mg daily, Lasix 20 mg daily, aspirin 81 mg daily REVIEW OF SYSTEMS: Thorough review of systems not completed secondary to limited evalu ation/examination and due to Covid19 PHYSICAL EXAM: Thorough physical exam not completed secondary to limited evaluation/examination and due to Covid19 ASSESSMENT: Covid 19 New-onset atrial fibrillation with RVR Large right sided pulmonary embolism Hypertension Diabetes mellitus Hypothyroidism PLAN: Obtain 2D echo to assess cardiac structure and function Discontinue IV cardizem Begin metoprolol succinate 25mg daily Discontinue IV cardizem Continue telemetry monitoring Further recommendations pending patient course Nurse practitioner note has been reviewed by physician. Signing provider agrees with the documented findings, assessment, and plan of care. Past Medical History Past Medical History: Diabetes Mellitus, Eye Disorder, Hearing Disorder / Deafness, Hypertension, Thyroid Disorder Additional Past Medical History / Comment(s): WEARS GLASSES, HX BRONCHITIS, HARD OF HEARING, ARTHRITIS IN BACK History of Any Multi-Drug Resistant Organisms: None Reported Past Surgical History: Cholecystectomy, Orthopedic Surgery Additional Past Surgical History / Comment(s): EXPLORATORY AFTER GALLBLADDER- 1969, TOTAL RT KNEE, TOTAL LT KNEE, ROTATOR CUFF RT SHOULDER, CYSTS REMOVED LT WRIST, HIGH CHOLESTEROL, PANCYTOPENIA Past Anesthesia/Blood Transfusion Reactions: No Reported Reaction Additional Past Anesthesia/Blood Transfusion Reaction / Comment(s): never had blood Past Psychological History: Depression Additional Psychological History / Comment(s): pt. stated she did attempt suicide one time 20 years ago by taking pills. She stated she is better now. Smoking Status: Never smoker Past Alcohol Use History: None Reported Additional Past Alcohol Use History / Comment(s): ONLY AROUND THE HOLIDAYS Past Drug Use History: None Reported - Past Family History Father Family Medical History: Coronary Artery Disease (CAD), Myocardial Infarction (MT) Mother Family Medical History: Asthma, Myocardial Infarction (MT) Medications and Allergies Home Medications Medication Instructions Recorded Confirmed Type ALPRAZolam [Xanax] 0.25 mg PO BID PRN 02/10/17 12/25/20 History Levothyroxine Sodium [Levoxyl] 125 mcg PO DAILY 02/10/17 12/25/20 History Omeprazole 20 mg PO DAILY 02/10/17 12/25/20 History Simvastatin [Zocor] 20 mg PO DAILY 02/10/17 12/25/20 History metFORMIN HCL [Glucophage] 500 mg PO DAILY 02/10/17 12/25/20 History traMADol HCL [Ultram] 50 mg PO TID PRN 02/10/17 12/25/20 History Albuterol Sulfate [Ventolin HFA] 2 puff INHALATION RT-Q4H PRN 12/25/20 12/25/20 History Aspirin EC [Ecotrin Low Dose] 81 mg PO DAILY 12/25/20 12/25/20 History Benzonatate [Tessalon Perles] 100 mg PO TID PRN 12/25/20 12/25/20 History Citalopram Hydrobromide [CeleXA] 20 mg PO DAILY 12/25/20 12/25/20 History Furosemide [Lasix] 20 mg PO DAILY 12/25/20 12/25/20 History Triamcinolone 0.1% Cream [Kenalog 1 applicatio TOPICAL TID 12/25/20 12/25/20 History 0.1% Cream] lisinopriL [Zestril] 5 mg PO DAILY 12/25/20 12/25/20 History Allergies Allergy/AdvReac Type Severity Reaction Status Date / Time adhesive tape Allergy Rash/Hives Verified 12/25/20 16:50 Iodinated Contrast Media Allergy Unknown Verified 12/25/20 16:50 tetanus and diphtheria Allergy Swelling Verified 12/25/20 16:50 toxoids PCN Allergy Rash/Hives Uncoded 12/25/20 16:50 Physical Exam Vitals: Vital Signs Temp Pulse Pulse Resp BP BP Pulse Ox 12/26/20 08:00 97.7 F 66 20 105/73 96 12/26/20 04:00 97.5 F L 89 20 151/81 96 12/26/20 00:00 97.7 F 98 20 108/71 97 12/25/20 21:30 98 F 105 H 22 127/83 96 12/25/20 19:30 103 H 18 130/89 96 12/25/20 19:00 18 12/25/20 18:30 101 H 18 123/86 96 12/25/20 17:30 105 H 18 123/86 96 12/25/20 16:01 105 H 18 131/76 96 12/25/20 14:11 18 12/25/20 14:06 98.3 F 128 H 20 143/100 96 Intake and Output 12/25/20 12/26/20 12/26/20 22:59 06:59 14:59 Intake Total 540 131.371 240 Output Total 900 Balance 540 -768.629 240 Intake: Intake, IV Titration 131.371 Amount Diltiazem 125 mg In 80.583 Sodium Chloride 0.9% 100 ml @ 5 MG/HR 5 mls/hr IV .Q24H [facility] Rx#:[id number] Heparin Sod,Pork in 0.45% 50.788 NaCl 25,000 unit In 0.45 % NaCl 1 250ml.bag @ 10. 39 UNITS/KG/HR 9.991 mls/ hr IV .Q24H [facility] Rx#: [id number] Oral 540 240 Output: Urine 900 Straight 450 Other: Voiding Method External Catheter External Catheter Bedside Commode # Voids 1 Weight 96.162 kg 92.5 kg Results 12/26/20 07:00 12/26/20 07:00 Cardiac Enzymes 12/25/20 12/25/20 Range/Units 14:35 14:35 AST 38 H (14-36) U/L Lactate Dehydrogenase 824 H (313-618) U/L Troponin I <0.012 (0.000-0.034) ng/mL Coagulation 12/25/20 12/25/20 12/26/20 Range/Units 14:35 22:57 07:00 PT 12.4 H (9.0-12.0) sec APTT 24.0 96.8 H 63.7 H (22.0-30.0) sec CBC 12/25/20 12/26/20 Range/Units 14:35 07:00 WBC 3.4 L 2.2 L (3.8-10.6) k/uL RBC 4.48 4.03 (3.80-5.40) m/uL Hgb 13.4 12.1 (11.4-16.0) gm/dL Hct 39.1 35.5 (34.0-46.0) % Plt Count 125 L D 110 L (150-450) k/uL Comprehensive Metabolic Panel 12/25/20 12/26/20 Range/Units 14:35 07:00 Sodium 138 135 L (137-145) mmol/L Potassium 3.6 4.2 (3.5-5.1) mmol/L Chloride 102 103 (98-107) mmol/L Carbon Dioxide 26 26 (22-30) mmol/L BUN 27 H 25 H (7-17) mg/dL Creatinine 1.10 H 1.02 (0.52-1.04) mg/dL Glucose 97 251 H (74-99) mg/dL Calcium 9.0 8.6 (8.4-10.2) mg/dL AST 38 H (14-36) U/L ALT 16 (4-34) U/L Alkaline Phosphatase 78 (38-126) U/L Total Protein 7.4 (6.3-8.2) g/dL Albumin 3.6 (3.5-5.0) g/dL Current Medications Generic Name Dose Route Start Last Admin Trade Name Freq PRN Reason Stop Dose Admin Albuterol Sulfate 2 puff 12/25/20 16:42 Albuterol Hfa Inhaler INHALATION RT-Q4H PRN Shortness Of Breath Alprazolam 0.25 mg 12/25/20 16:42 12/26/20 03:53 Alprazolam 0.25 Mg Tab PO 0.25 mg BID PRN Administration Anxiety Aspirin 81 mg 12/26/20 09:00 12/26/20 08:38 Aspirin 81 Mg PO 81 mg DAILY [facility] Administration Atorvastatin Calcium 10 mg 12/26/20 09:00 12/26/20 08:38 Atorvastatin 10 Mg Tab PO 10 mg DAILY [facility] Administration Benzonatate 100 mg 12/25/20 16:42 12/26/20 03:53 Benzonatate 100 Mg Cap PO 100 mg TID PRN Administration Cough Citalopram Hydrobromide 20 mg 12/26/20 09:00 12/26/20 08:38 Citalopram Hydrobromide 20 Mg Tab PO 20 mg DAILY [facility] Administration Dexamethasone Sodium Phosphate 6 mg 12/25/20 18:45 12/26/20 08:38 Dexamethasone Sod Phosphate 10 Mg/Ml 1 Ml Vial IV 6 mg DAILY [facility] Administration Furosemide 20 mg 12/26/20 09:00 12/26/20 08:38 Furosemide 20 Mg Tab PO 20 mg DAILY [facility] Administration Heparin Sodium (Porcine) 0 unit 12/25/20 16:43 Heparin Sodium,Porcine 5,000 Unit/Ml 1 Ml Vial IV PER PROTOCOL PRN Low PTT Protocol Diltiazem HCl 125 mg/ Sodium 125 mls @ 5 mls/hr 12/25/20 14:15 12/26/20 06:29 Chloride IV 5 mg/hr .Q24H [facility] 5 mls/hr Administration 5 MG/HR Heparin Sodium/Sodium Chloride 250 mls @ 9.991 mls/hr 12/25/20 16:45 12/26/20 01:29 25,000 unit/ Sodium Chloride IV 7.39 units/kg/hr .Q24H [facility] 7.106 mls/hr Titration Protocol 10.39 UNITS/KG/HR Insulin Aspart 0 unit 12/25/20 21:00 12/26/20 06:29 Insulin Aspart (Novolog) 100 Unit/Ml Vial SQ 7 unit ACHS [facility] Administration Protocol Insulin Detemir 10 unit 12/25/20 21:00 12/25/20 21:11 Insulin Detemir (Levemir) 100 Unit/Ml Syr SQ Not Given HS [facility] Levothyroxine Sodium 125 mcg 12/26/20 06:30 12/26/20 06:29 Levothyroxine 125 Mcg Tab PO 125 mcg DAILY@0630 [facility] Administration Lisinopril 5 mg 12/26/20 09:00 12/26/20 08:38 Lisinopril 5 Mg Tab PO 5 mg DAILY [facility] Administration Metoprolol Succinate 25 mg 12/26/20 09:00 12/26/20 08:45 Metoprolol Succinate (Er) 25 Mg Tab.Er.24h PO 25 mg DAILY [facility] Administration Naloxone HCl 0.2 mg 12/25/20 16:39 Naloxone 0.4 Mg/Ml 1 Ml Vial IV Q2M PRN Opioid Reversal Naloxone HCl 0.2 mg 12/25/20 18:01 Naloxone 0.4 Mg/Ml 1 Ml Vial IV Q2M PRN Opioid Reversal Pantoprazole Sodium 40 mg 12/26/20 07:30 12/26/20 06:29 Pantoprazole 40 Mg Tablet PO 40 mg DAILY@0730 [facility] Administration Tramadol HCl 50 mg 12/25/20 18:00 Tramadol 50 Mg Tab PO TID PRN Mild Pain Intake and Output 12/25/20 12/26/20 12/26/20 22:59 06:59 14:59 Intake Total 540 131.371 240 Output Total 900 Balance 540 -768.629 240 Intake: Intake, IV Titration 131.371 Amount Diltiazem 125 mg In 80.583 Sodium Chloride 0.9% 100 ml @ 5 MG/HR 5 mls/hr IV .Q24H [facility] Rx#:[id number] Heparin Sod,Pork in 0.45% 50.788 NaCl 25,000 unit In 0.45 % NaCl 1 250ml.bag @ 10. 39 UNITS/KG/HR 9.991 mls/ hr IV .Q24H [facility] Rx#: [id number] Oral 540 240 Output: Urine 900 Straight 450 Other: Voiding Method External Catheter External Catheter Bedside Commode # Voids 1 Weight 96.162 kg 92.5 kg 12/26/20 07:00 12/26/20 07:00
--- NOTE | 2020-12-26 11:49 | ECHOF ---
Referral Reason:a-fib MEASUREMENTS -------- HEIGHT: 152.4 cm WEIGHT: 92.1 kg BP: RVIDd: 3.3 cm (< 3.3) IVSd: 1.1 cm (0.6 - 1.1) LVIDd: 3.0 cm (3.9 - 5.3) LVPWd: 1.7 cm (0.6 - 1.1) IVSs: 1.3 cm LVIDs: 2.1 cm LVPWs: 1.6 cm LA Diam: 3.9 cm (2.7 - 3.8) LAESV Index (A-L): 41.56 ml/m RAP: 5.00 mmHg RVSP: 21.76 mmHg FINDINGS -------- Atrial fibrillation. Pt is positive for Covid. LV size, wall thickness and systolic function are normal, with an EF greater than 55%. The left anshul tricular size is normal. The right ventricle is normal in size. LA is severely dilated >40 ml/m2 The right atrial size is normal. There is mild aortic valve sclerosis. There is no evidence of aortic regurgitation. Mild mitral annular calcification present. Mild mitral regurgitation is present. Mild tricuspid regurgitation present. Right ventricular systolic pressure is normal at < 35 mmHg. There is no pulmonic regurgitation present. The aortic root size is normal. There is no pericardial effusion. CONCLUSIONS -------- 1. Pt is positive for Covid. 2. LV size, wall thickness and systolic function are normal, with an EF greater than 55%. 3. The left ventricular size is normal. 4. The right ventricle is normal in size. 5. LA is severely dilated >40 ml/m2 6. The right atrial size is normal. 7. There is mild aortic valve sclerosis. 8. Mild mitral annular calcification present. 9. Mild mitral regurgitation is present. 10. Mild tricuspid regurgitation present. 11. The aortic root size is normal. 12. There is no pericardial effusion. [employer]: Bisi Willis RDCS
[2020-12-26 12:16] LABS: Glucose,Whole Blood 242 mg/dL (75-99)
--- NOTE | 2020-12-26 16:24 | P.PN ---
Subjective Progress Note Date: 12/26/20 Principal diagnosis: sob Feeling weak still. She has not tried to get up out of bed yet. Still with sob and cough productive of scant amount of phlegm. No fevers or chills. Objective - Vital Signs Vital signs: Vital Signs Temp 98.3 F 12/26/20 15:57 Pulse 75 12/26/20 15:57 Resp 18 12/26/20 15:57 BP 115/72 12/26/20 15:57 Pulse Ox 95 12/26/20 15:57 Intake & Output 12/25/20 12/26/20 12/26/20 18:59 06:59 18:59 Intake Total 671.371 240 Output Total 900 100 Balance -228.629 140 Weight 96.162 kg 92.5 kg Intake: Intake, IV Titration 131.371 Amount Diltiazem 125 mg In 80.583 Sodium Chloride 0.9% 100 ml @ 5 MG/HR 5 mls/hr IV .Q24H [facility] Rx#:[id number] Heparin Sod,Pork in 0.45% 50.788 NaCl 25,000 unit In 0.45 % NaCl 1 250ml.bag @ 10. 39 UNITS/KG/HR 9.991 mls/ hr IV .Q24H [facility] Rx#: [id number] Oral 540 240 Output: Urine 900 100 Straight 450 Other: Voiding Method External Catheter Bedside Commode # Voids 1 - Exam Constitutional: No acute distress, conversant, pleasant Eyes:Anicteric sclerae, moist conjunctiva, no lid-lag, PERRLA, ENMT: Oropharynx clear, no erythema, exudates Neck: Supple, FROM, no masses, or JVD, No carotid bruits, No thyromegaly Lungs: Scattered wheezing and rhonchi, Clear to percussion, Normal respiratory effort, no accessory muscle use Cardiovascular: Heart regular in rate and rhythm, No murmurs, gallops, or rubs, No peripheral edema Abdominal: Soft, Nontender, no guarding, rebound or rigidity, Normoactive bowel sounds, No hepatomegaly, No splenomegaly, No palpable mass Skin: Normal temperature, tone, texture, turgor, no induration, No subcutaneous nodules, No rash, lesions, No ulcers Extremities: No digital cyanosis, No clubbing, Pedal pulses intact and symmetrical, Radial pulses intact and symmetrical, No calf tenderness Psychiatric: Alert and oriented to person, place and time, appropriate affect, intact judgement Neuro: Muscles Strength 5/5 in all 4 extremities, Sensation to light touch grossly present throughout, Cranial nerves II-XII grossly intact, no focal sensory deficits - Labs CBC & Chem 7: 12/26/20 07:00 12/26/20 07:00 Labs: Abnormal Lab Results - Last 24 Hours (Table) 12/25/20 12/25/20 12/25/20 Range/Units 14:35 16:36 21:08 WBC (3.8-10.6) k/uL Plt Count (150-450) k/uL Lymphocytes # (1.0-4.8) k/uL APTT (22.0-30.0) sec Sodium (137-145) mmol/L BUN (7-17) mg/dL Glucose (74-99) mg/dL POC Glucose (mg/dL) 165 H (75-99) mg/dL Procalcitonin 0.11 H (0.02-0.09) ng/mL Urine Appearance (Clear) Urine Protein (Negative) Amorphous Sediment (None) /hpf Urine Bacteria (None) /hpf Hyaline Casts (0-2) /lpf Urine Mucus (None) /hpf Coronavirus (PCR) Detected A (Not Detectd) 12/25/20 12/26/20 12/26/20 Range/Units 22:57 05:39 06:04 WBC (3.8-10.6) k/uL Plt Count (150-450) k/uL Lymphocytes # (1.0-4.8) k/uL APTT 96.8 H (22.0-30.0) sec Sodium (137-145) mmol/L BUN (7-17) mg/dL Glucose (74-99) mg/dL POC Glucose (mg/dL) 286 H (75-99) mg/dL Procalcitonin (0.02-0.09) ng/mL Urine Appearance Cloudy H (Clear) Urine Protein Trace H (Negative) Amorphous Sediment Rare H (None) /hpf Urine Bacteria Many H (None) /hpf Hyaline Casts 3 H (0-2) /lpf Urine Mucus Occasional H (None) /hpf Coronavirus (PCR) (Not Detectd) 12/26/20 12/26/20 12/26/20 Range/Units 07:00 07:00 07:00 WBC 2.2 L (3.8-10.6) k/uL Plt Count 110 L (150-450) k/uL Lymphocytes # 0.4 L (1.0-4.8) k/uL APTT 63.7 H (22.0-30.0) sec Sodium 135 L (137-145) mmol/L BUN 25 H (7-17) mg/dL Glucose 251 H (74-99) mg/dL POC Glucose (mg/dL) (75-99) mg/dL Procalcitonin (0.02-0.09) ng/mL Urine Appearance (Clear) Urine Protein (Negative) Amorphous Sediment (None) /hpf Urine Bacteria (None) /hpf Hyaline Casts (0-2) /lpf Urine Mucus (None) /hpf Coronavirus (PCR) (Not Detectd) 12/26/20 Range/Units 12:09 WBC (3.8-10.6) k/uL Plt Count (150-450) k/uL Lymphocytes # (1.0-4.8) k/uL APTT (22.0-30.0) sec Sodium (137-145) mmol/L BUN (7-17) mg/dL Glucose (74-99) mg/dL POC Glucose (mg/dL) 242 H (75-99) mg/dL Procalcitonin (0.02-0.09) ng/mL Urine Appearance (Clear) Urine Protein (Negative) Amorphous Sediment (None) /hpf Urine Bacteria (None) /hpf Hyaline Casts (0-2) /lpf Urine Mucus (None) /hpf Coronavirus (PCR) (Not Detectd) Assessment and Plan Plan: Acute right pulmonary artery embolus Heparin drip Switch to oral anticoagulation once stable Covid 19 pneumonia/acute hypoxemic respiratory failure Currently requiring 2 L of nasal cannula Out of the window for any remdisivir treatment Decadron 6 mg IV daily Atrial fibrillation with rapid ventricular response Cardizem switched to metoprolol by cardiology Continue heparin drip Echo reviewed, looks ok. Diabetes type 2 Sliding scale insulin Increase lantus to 15 units daily as glucose is still uncontrolled. Hold oral hypoglycemics Chronic Hypertension, Thyroid Disorder Stable Resume meds Anticipated discharge 1-2 days Disposition; home vs rehab, consult PT
[2020-12-26 16:54] LABS: Glucose,Whole Blood 215 mg/dL (75-99)
[2020-12-26] MEDS: HEPARIN SOD,PORK IN 0.45% NACL 25,000 UNIT in 0.45% NACL 1 250ML.BAG IV SCH (17:23)
--- NOTE | 2020-12-26 18:58 | P.CNPUL ---
History of Present Illness Consult date: 12/26/20 Requesting physician: Selin Diaz Reason for consult: pneumonia Chief complaint: Shortness of breath and weakness. History of present illness: This is an 80-year-old female with 2 weeks history of multiple constitutional symptoms. Her symptoms were mostly symptoms of cough, shortness of breath, weakness, fatigue, intermittent episodes of diarrhea, patient was diagnosed at our facility with COVID 19 infection about a week ago. At the time the patient was not doing as bad as she is now, yesterday she presented back to the ER with multiple constitutional symptoms, and she was also noted to complain of intermittent episodes of lightheadedness. Had almost episodes of near syncope a nd falling from her lightheadedness. Upon presentation to the ER patient was noted to be in atrial fibrillation with RVR, her CT angiogram of the chest showed bilateral infiltrates and right pulmonary embolism. Patient was placed on Cardizem and heparin, patient is now on the Covid 19 cocktail, she is on heparin, and we were asked to see her on consultation. Since her atrial fibrillation seems to be better controlled, her symptoms seemed to be much improved. Nonetheless the patient continues to have some shortness of breath, occasional cough, no wheezing, no chest pain at present Review of Systems Constitutional: Weakness fatigue malaise HEENT: Negative. Pulmonary: As noted in HPI. Cardiac: As noted in HPI. GI: As noted in HPI. Genitourinary: Negative Musculoskeletal vague aches and pains and weakness Neurologic: Lightheadedness and near falling. Skin: Bruises easily, and she has chronic venous stasis changes in lower extremities. Hematologic: Bruising easily but no previous history of clotting bleeding or bruising Endocrine: Symptoms of diabetes. And hypothyroidism. Psychiatric: Negative. Past Medical History Past Medical History: Diabetes Mellitus, Eye Disorder, Hearing Disorder / Deafness, Hypertension, Thyroid Disorder Additional Past Medical History / Comment(s): WEARS GLASSES, HX BRONCHITIS, HARD OF HEARING, ARTHRITIS IN BACK History of Any Multi-Drug Resistant Organisms: None Reported Past Surgical History: Cholecystectomy, Orthopedic Surgery Additional Past Surgical History / Comment(s): EXPLORATORY AFTER GALLBLADDER- 1968, TOTAL RT KNEE, TOTAL LT KNEE, ROTATOR CUFF RT SHOULDER, CYSTS REMOVED LT WRIST, HIGH CHOLESTEROL, PANCYTOPENIA Past Anesthesia/Blood Transfusion Reactions: No Reported Reaction Additional Past Anesthesia/Blood Transfusion Reaction / Comment(s): never had blood Past Psychological History: Depression Additional Psychological History / Comment(s): pt. stated she did attempt suicide one time 20 years ago by taking pills. She stated she is better now. Smoking Status: Never smoker Past Alcohol Use History: None Reported Additional Past Alcohol Use History / Comment(s): ONLY AROUND THE HOLIDAYS Past Drug Use History: None Reported - Past Family History Father Family Medical History: Coronary Artery Disease (CAD), Myocardial Infarction (SD) Mother Family Medical History: Asthma, Myocardial Infarction (SD) Medications and Allergies Home Medications Medication Instructions Recorded Confirmed Type ALPRAZolam [Xanax] 0.25 mg PO BID PRN 02/10/17 12/25/20 History Levothyroxine Sodium [Levoxyl] 125 mcg PO DAILY 02/10/17 12/25/20 History Omeprazole 20 mg PO DAILY 02/10/17 12/25/20 History Simvastatin [Zocor] 20 mg PO DAILY 02/10/17 12/25/20 History metFORMIN HCL [Glucophage] 500 mg PO DAILY 02/10/17 12/25/20 History traMADol HCL [Ultram] 50 mg PO TID PRN 02/10/17 12/25/20 History Albuterol Sulfate [Ventolin HFA] 2 puff INHALATION RT-Q4H PRN 12/25/20 12/25/20 History Aspirin EC [Ecotrin Low Dose] 81 mg PO DAILY 12/25/20 12/25/20 History Benzonatate [Tessalon Perles] 100 mg PO TID PRN 12/25/20 12/25/20 History Citalopram Hydrobromide [CeleXA] 20 mg PO DAILY 12/25/20 12/25/20 History Furosemide [Lasix] 20 mg PO DAILY 12/25/20 12/25/20 History Triamcinolone 0.1% Cream [Kenalog 1 applicatio TOPICAL TID 12/25/20 12/25/20 History 0.1% Cream] lisinopriL [Zestril] 5 mg PO DAILY 12/25/20 12/25/20 History Apixaban [Eliquis Starter Pack 0 mg PO DIRECTED 30 Days #1 pack 12/26/20 Rx (for VTE)] Allergies Allergy/AdvReac Type Severity Reaction Status Date / Time adhesive tape Allergy Rash/Hives Verified 12/25/20 16:50 Iodinated Contrast Media Allergy Unknown Verified 12/25/20 16:50 tetanus and diphtheria Allergy Swelling Verified 12/25/20 16:50 toxoids PCN Allergy Rash/Hives Uncoded 12/25/20 16:50 Physical Exam Vitals: Vital Signs Temp Pulse Pulse Resp BP BP Pulse Ox 12/26/20 15:57 98.3 F 75 18 115/72 95 12/26/20 14:00 18 12/26/20 11:42 97.8 F 85 18 127/81 98 12/26/20 08:00 97.7 F 66 20 105/73 96 12/26/20 04:00 97.5 F L 89 20 151/81 96 12/26/20 00:00 97.7 F 98 20 108/71 97 12/25/20 21:30 98 F 105 H 22 127/83 96 12/25/20 19:30 103 H 18 130/89 96 12/25/20 19:00 18 Intake and Output 12/26/20 12/26/20 12/26/20 06:59 14:59 22:59 Intake Total 131.371 240 112.985 Output Total 900 100 Balance -768.629 140 112.985 Intake: Intake, IV Titration 131.371 112.985 Amount Diltiazem 125 mg In 80.583 Sodium Chloride 0.9% 100 ml @ 5 MG/HR 5 mls/hr IV .Q24H [facility] Rx#:[id number] Heparin Sod,Pork in 0.45% 50.788 112.985 NaCl 25,000 unit In 0.45 % NaCl 1 250ml.bag @ 10. 39 UNITS/KG/HR 9.991 mls/ hr IV .Q24H [facility] Rx#: [id number] Oral 240 Output: Urine 900 100 Straight 450 Other: Voiding Method External Catheter Bedside Commode Weight 92.5 kg Physical Exam: Revealed 80-year-old female in no distress. She is presently on 2 L, and her O2 saturations 98% Head: Atraumatic, normocephalic. HEENT:[Neck is supple.] [No neck masses.] [No thyromegaly.] [No JVD.] Chest: [Clear throughout, fine crackles at the bases. Cardiac Exam: [Normal S1 and S2, no S3 gallop, 2/6 systolic murmur thought the precordium. Abdomen: [Soft, nontender, no megaly, no rebound, no guarding, normal bowel sounds.] Extremities: [No clubbing, no edema, no cyanosis.] Neurological Exam: [No focal neurologic deficit.] Alert oriented 3. Psychiatric: Normal mood, affect and normal mental status examination. Skin: No neck venous stasis changes and areas of ecchymosis in lower extremities Results - Laboratory Findings CBC and BMP: 12/26/20 07:00 12/26/20 07:00 PT/INR, D-dimer PT 12.4 sec (9.0-12.0) H 12/25/20 14:35 INR 1.2 (<1.2) H 12/25/20 14:35 D-Dimer 14.61 mg/L FEU (<0.60) H 12/25/20 14:35 Abnormal lab findings: Abnormal Labs 12/25/20 12/25/20 12/25/20 14:35 14:35 14:35 WBC 3.4 L Plt Count 125 L D Lymphocytes # 0.8 L PT 12.4 H INR 1.2 H APTT D-Dimer 14.61 H Sodium BUN 27 H Creatinine 1.10 H Glucose POC Glucose (mg/dL) Total Bilirubin 1.9 H AST 38 H Lactate Dehydrogenase 824 H C-Reactive Protein 44.0 H Procalcitonin Urine Appearance Urine Protein Amorphous Sediment Urine Bacteria Hyaline Casts Urine Mucus Coronavirus (PCR) 12/25/20 12/25/20 12/25/20 14:35 16:36 21:08 WBC Plt Count Lymphocytes # PT INR APTT D-Dimer Sodium BUN Creatinine Glucose POC Glucose (mg/dL) 165 H Total Bilirubin AST Lactate Dehydrogenase C-Reactive Protein Procalcitonin 0.11 H Urine Appearance Urine Protein Amorphous Sediment Urine Bacteria Hyaline Casts Urine Mucus Coronavirus (PCR) Detected A 12/25/20 12/26/20 12/26/20 22:57 05:39 06:04 WBC Plt Count Lymphocytes # PT INR APTT 96.8 H D-Dimer Sodium BUN Creatinine Glucose POC Glucose (mg/dL) 286 H Total Bilirubin AST Lactate Dehydrogenase C-Reactive Protein Procalcitonin Urine Appearance Cloudy H Urine Protein Trace H Amorphous Sediment Rare H Urine Bacteria Many H Hyaline Casts 3 H Urine Mucus Occasional H Coronavirus (PCR) 12/26/20 12/26/20 12/26/20 07:00 07:00 07:00 WBC 2.2 L Plt Count 110 L Lymphocytes # 0.4 L PT INR APTT 63.7 H D-Dimer Sodium 135 L BUN 25 H Creatinine Glucose 251 H POC Glucose (mg/dL) Total Bilirubin AST Lactate Dehydrogenase C-Reactive Protein Procalcitonin Urine Appearance Urine Protein Amorphous Sediment Urine Bacteria Hyaline Casts Urine Mucus Coronavirus (PCR) 12/26/20 12/26/20 12:09 16:51 WBC Plt Count Lymphocytes # PT INR APTT D-Dimer Sodium BUN Creatinine Glucose POC Glucose (mg/dL) 242 H 215 H Total Bilirubin AST Lactate Dehydrogenase C-Reactive Protein Procalcitonin Urine Appearance Urine Protein Amorphous Sediment Urine Bacteria Hyaline Casts Urine Mucus Coronavirus (PCR) - Diagnostic Findings Chest x-ray: image reviewed (As noted in HPI.) CT scan - chest: image reviewed Assessment and Plan Assessment: Impression: Acute covid 19 pneumonitis acute hypoxic respiratory failure secondary to above. Acute right sided pulmonary embolism, most likely provoked by her Covid 19 infection. New-onset atrial fibrillation secondary to pulmonary embolism Benign essential hypertension Hypothyroidism Type 2 diabetes with history of diabetic neuropathy. Recommendation: Continue present supportive care measures. Continue Cardizem. Continue heparin. Continue the Covid 19 cocktails. Patient is out of the window for remdesivir Continue Decadron. Resume home meds including her medication for diabetes and for hypothyroidism. We'll continue to follow. No need for actemra, as she doesn't qualify, and no need for convalescent plasma Time with Patient: Greater than 30
[2020-12-26 20:25] LABS: Glucose,Whole Blood 163 mg/dL (75-99)
[2020-12-26] MEDS: INSULIN DETEMIR (LEVEMIR) 100 UNIT/ML SYR SQ SCH (20:46)
[2020-12-27 06:23] LABS: Glucose,Whole Blood 153 mg/dL (75-99)
[2020-12-27] MEDS: LEVOTHYROXINE 125 MCG TAB PO SCH (06:38)
[2020-12-27] MEDS: INSULIN ASPART (NovoLOG) 100 UNIT/ML VIAL SQ SCH ×4 (06:38→21:02)
[2020-12-27] MEDS: PANTOPRAZOLE 40 MG TABLET PO SCH (06:38)
[2020-12-27] MEDS: ASPIRIN 81 MG PO SCH (08:40)
[2020-12-27] MEDS: APIXABAN 5 MG TAB PO SCH ×2 (08:40→21:02)
[2020-12-27] MEDS: lisinopriL 5 MG TAB PO SCH (08:41)
[2020-12-27] MEDS: CITALOPRAM HYDROBROMIDE 20 MG TAB PO SCH (08:41)
[2020-12-27] MEDS: METOPROLOL SUCCINATE (ER) 25 MG TAB.ER.24H PO SCH (08:41)
[2020-12-27] MEDS: DEXAMETHASONE SOD PHOSPHATE 10 MG/ML 1 ML VIAL IV SCH (08:41)
[2020-12-27] MEDS: FUROSEMIDE 20 MG TAB PO SCH (08:41)
[2020-12-27] MEDS: ATORVASTATIN 10 MG TAB PO SCH (08:41)
[2020-12-27 10:25] LABS: Basophils % (A) 0 %; Eosinophils % (A) 0 %; HCT 37.9 % (34.0-46.0); HGB 12.9 gm/dL (11.4-16.0); Lymphocytes # (A) 0.7 k/uL (1.0-4.8); Lymphocytes % (A) 9 %; MCH 30.2 pg (25.0-35.0); MCHC 33.9 g/dL (31.0-37.0); MCV 89.1 fL (80.0-100.0); Mean Platelet Volume 8.2; Monocytes # (A) 0.2 k/uL (0-1.0); Monocytes % (A) 3 %; Neutrophils # (A) 7.1 k/uL (1.3-7.7); Neutrophils % (A) 87 %; RBC 4.26 m/uL (3.80-5.40); RDW 15.3 % (11.5-15.5); WBC 8.1 k/uL (3.8-10.6)
[2020-12-27 10:31] LABS: Platelet Count 185 k/uL (150-450)
[2020-12-27 10:38] LABS: Albumin 3.6 g/dL (3.5-5.0); Calcium 9.1 mg/dL (8.4-10.2); Magnesium 1.9 mg/dL (1.6-2.3); Phosphorus 3.2 mg/dL (2.5-4.5); Potassium 3.3 mmol/L (3.5-5.1); Total Bilirubin 1.1 mg/dL (0.2-1.3); Total Protein 7.5 g/dL (6.3-8.2)
--- NOTE | 2020-12-27 11:04 | P.PN ---
Subjective Progress Note Date: 12/27/20 Principal diagnosis: sob Patient doing well, no chest pain or sob. No palpitations. Objective - Vital Signs Vital signs: Vital Signs Temp 97.7 F 12/27/20 08:00 Pulse 92 12/27/20 08:00 Resp 18 12/27/20 08:00 BP 128/80 12/27/20 08:00 Pulse Ox 94 L 12/27/20 08:00 Intake & Output 12/26/20 12/27/20 12/27/20 18:59 06:59 18:59 Intake Total 171.318 3598 222 Output Total 100 200 Balance 252.985 800 222 Weight 92 kg Intake: Intake, IV Titration 112.985 Amount Heparin Sod,Pork in 0.45% 112.985 NaCl 25,000 unit In 0.45 % NaCl 1 250ml.bag @ 10. 39 UNITS/KG/HR 9.991 mls/ hr IV .Q24H [facility] Rx#: [id number] Oral 240 1000 222 Output: Urine 100 200 Other: Voiding Method Bedside Commode Bedside Commode Bedside Commode # Voids 1 - Exam Constitutional: No acute distress, conversant, pleasant Eyes:Anicteric sclerae, moist conjunctiva, no lid-lag, PERRLA, ENMT: Oropharynx clear, no erythema, exudates Neck: Supple, FROM, no masses, or JVD, No carotid bruits, No thyromegaly Lungs: Scattered wheezing and rhonchi, Clear to percussion, Normal respiratory e ffort, no accessory muscle use Cardiovascular: Heart regular in rate and rhythm, No murmurs, gallops, or rubs, No peripheral edema Abdominal: Soft, Nontender, no guarding, rebound or rigidity, Normoactive bowel sounds, No hepatomegaly, No splenomegaly, No palpable mass Skin: Normal temperature, tone, texture, turgor, no induration, No subcutaneous nodules, No rash, lesions, No ulcers Extremities: No digital cyanosis, No clubbing, Pedal pulses intact and symmetrical, Radial pulses intact and symmetrical, No calf tenderness Psychiatric: Alert and oriented to person, place and time, appropriate affect, intact judgement Neuro: Muscles Strength 5/5 in all 4 extremities, Sensation to light touch grossly present throughout, Cranial nerves II-XII grossly intact, no focal sensory deficits - Labs CBC & Chem 7: 12/27/20 09:49 12/27/20 09:49 Labs: Abnormal Lab Results - Last 24 Hours (Table) 12/26/20 12/26/20 12/26/20 Range/Units 12:09 16:51 20:18 Lymphocytes # (1.0-4.8) k/uL Sodium (137-145) mmol/L Potassium (3.5-5.1) mmol/L BUN (7-17) mg/dL Creatinine (0.52-1.04) mg/dL Glucose (74-99) mg/dL POC Glucose (mg/dL) 242 H 215 H 163 H (75-99) mg/dL 12/27/20 12/27/20 12/27/20 Range/Units 06:08 09:49 09:49 Lymphocytes # 0.7 L (1.0-4.8) k/uL Sodium 136 L (137-145) mmol/L Potassium 3.3 L (3.5-5.1) mmol/L BUN 27 H (7-17) mg/dL Creatinine 1.20 H (0.52-1.04) mg/dL Glucose 141 H (74-99) mg/dL POC Glucose (mg/dL) 153 H (75-99) mg/dL Microbiology - Last 24 Hours (Table) 12/25/20 16:01 Blood Culture - Preliminary Blood No Growth after 24 hours 12/25/20 14:35 Blood Culture - Preliminary Blood No Growth after 24 hours Assessment and Plan Plan: Acute right pulmonary artery embolus D/c heparin drip Switch to eliquis today Covid 19 pneumonia/acute hypoxemic respiratory failure Currently requiring 2 L of nasal cannula Out of the window for any remdisivir treatment Decadron 6 mg IV daily Atrial fibrillation with rapid ventricular response Cardizem switched to metoprolol by cardiology AC as above Echo reviewed, looks ok. Diabetes type 2 BG controlled Sliding scale insulin Lantus 15 units daily. Hold oral hypoglycemics Hypokalemia Replace and follow in am Chronic Hypertension, Thyroid Disorder Stable Resume meds Anticipated discharge 1-2 days Disposition; home vs rehab, consult PT
[2020-12-27 11:44] LABS: Glucose,Whole Blood 171 mg/dL (75-99)
[2020-12-27] MEDS ORDERED: Potassium Replacement Protocol 1 EACH MISC MISCELLANE PRN (11:53)
[2020-12-27] MEDS: POTASSIUM CHLORIDE ER 20 MEQ TAB.ER PO SCH ×2 (11:58→13:43)
--- NOTE | 2020-12-27 14:03 | P.PN ---
Subjective Progress Note Date: 12/27/20 CHIEF COMPLAINT: A. lara with RVR HISTORY OF PRESENT ILLNESS: 12/26/2020 This is a 80-year-old female with a past medical history significant for diabetes mellitus, hypertension, hypothyroidism, and depression. 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 We have been asked to see the patient in consultation for Herlinda. lara with RVR. Patient is admitted to the hospital secondary to Covid 19. EKG on admission revealed atrial fibrillation with RVR. Patient does not have a history of atrial fibrillation. Patient was started on IV heparin and IV Cardizem. Patient remains in atrial fibrillation this morning with a heart rate in the 60s. blood pressure 105/73. Patient is on 2 L nasal cannula with oxygen saturations greater than 92%. She is afebrile. EKG reveals atrial fibrillation with RVR Chest xray cardiomegaly and interstitial/vascular prominence. Correlate for CHF with pulmonary vascular congestion Laboratory data: WBC 2.2. Hemoglobin 12.1. Platelet count 110. Sodium 135. Potassium 4.2. BUN 25. Creatinine 1.02. CTA: Large pulmonary embolism and right lower lobe pulmonary artery. No evidence of right heart strain. Current home cardiac medications include lisinopril 5 mg daily, simvastatin 20 mg daily, Lasix 20 mg daily, aspirin 81 mg daily 12/27/2020 Patient has been transitioned to Eliquis. IV heparin has been discontinued. Echocardiogram revealed ejection fraction 55% with no documented evidence of right heart strain. She remains in atrial fibrillation with controlled ventricular rate. blood pressure 128/80. She is afebrile. She is on room air with oxygen saturations greater than 92%. PHYSICAL EXAM: Thorough physical exam not completed secondary to limited evaluation/examination and due to Covid19 ASSESSMENT: Covid 19 New-onset atrial fibrillation with RVR Large right sided pulmonary embolism Hypertension Diabetes mellitus Hypothyroidism PLAN: continue metoprolol succinate 25mg daily continue anticoagulation with Eliquis Continue telemetry monitoring Further recommendations pending patient course Nurse practitioner note has been reviewed by physician. Signing provider agrees with the documented findings, assessment, and plan of care. Objective - Vital Signs Vital signs: Vital Signs Temp 97.7 F 12/27/20 08:00 Pulse 69 12/27/20 11:45 Resp 18 12/27/20 08:00 BP 128/80 12/27/20 08:00 Pulse Ox 96 12/27/20 11:45 Intake & Output 12/26/20 12/27/20 12/27/20 18:59 06:59 18:59 Intake Total 079.063 1183 222 Output Total 100 200 Balance 252.985 800 222 Weight 92 kg Intake: Intake, IV Titration 112.985 Amount Heparin Sod,Pork in 0.45% 112.985 NaCl 25,000 unit In 0.45 % NaCl 1 250ml.bag @ 10. 39 UNITS/KG/HR 9.991 mls/ hr IV .Q24H [facility] Rx#: [id number] Oral 240 1000 222 Output: Urine 100 200 Other: Voiding Method Bedside Commode Bedside Commode Bedside Commode # Voids 1 1 # Bowel Movements 1 - Labs CBC & Chem 7: 12/27/20 09:49 12/27/20 09:49 Labs: Abnormal Lab Results - Last 24 Hours (Table) 12/26/20 12/26/20 12/27/20 Range/Units 16:51 20:18 06:08 Lymphocytes # (1.0-4.8) k/uL Sodium (137-145) mmol/L Potassium (3.5-5.1) mmol/L BUN (7-17) mg/dL Creatinine (0.52-1.04) mg/dL Glucose (74-99) mg/dL POC Glucose (mg/dL) 215 H 163 H 153 H (75-99) mg/dL 12/27/20 12/27/20 12/27/20 Range/Units 09:49 09:49 11:37 Lymphocytes # 0.7 L (1.0-4.8) k/uL Sodium 136 L (137-145) mmol/L Potassium 3.3 L (3.5-5.1) mmol/L BUN 27 H (7-17) mg/dL Creatinine 1.20 H (0.52-1.04) mg/dL Glucose 141 H (74-99) mg/dL POC Glucose (mg/dL) 171 H (75-99) mg/dL Microbiology - Last 24 Hours (Table) 12/25/20 16:01 Blood Culture - Preliminary Blood No Growth after 24 hours 12/25/20 14:35 Blood Culture - Preliminary Blood No Growth after 24 hours
--- NOTE | 2020-12-27 16:12 | P.PN ---
Subjective Progress Note Date: 12/27/20 Principal diagnosis: Acute hypoxic failure secondary to acute covid 19 pneumonitis This is an 80-year-old female with 2 weeks history of multiple constitutional symptoms. Her symptoms were mostly symptoms of cough, shortness of breath, weakness, fatigue, intermittent episodes of diarrhea, patient was diagnosed at our facility with COVID 19 infection about a week ago. At the time the patient was not doing as bad as she is now, yesterday she presented back to the ER with multiple constitutional symptoms, and she was also noted to complain of intermittent episodes of lightheadedness. Had almost episodes of near syncope and falling from her lightheadedness. Upon presentation to the ER patient was noted to be in atrial fibrillation with RVR, her CT angiogram of the chest showed bilateral infiltrates and right pulmonary embolism. Patient was placed on Cardizem and heparin, patient is now on the Covid 19 cocktail, she is on heparin, and we were asked to see her on consultation. Since her atrial fibrillation seems to be better controlled, her symptoms seemed to be much improved. Nonetheless the patient continues to have some shortness of breath, occasional cough, no wheezing, no chest pain at present Patient was reevaluated today on 12/27/2020, patient is doing well, she is on room air, O2 saturation is 95%. CBC is normal index was abnormal renal profile is relatively normal except for creatinine 1.20, patient remains on Decadron. She is being treated with anticoagulation therapy for acute pulmonary embolism and for her atrial fibrillation. Patient will be switched to oral anticoagulation therapy, and possibly discharge the patient home in the next 24 hours. Objective - Vital Signs Vital signs: Vital Signs Temp 97.7 F 12/27/20 12:00 Pulse 83 12/27/20 14:00 Resp 18 12/27/20 14:00 BP 128/76 12/27/20 12:00 Pulse Ox 95 12/27/20 14:00 Intake & Output 12/26/20 12/27/20 12/27/20 18:59 06:59 18:59 Intake Total 797.004 6758 222 Output Total 100 200 Balance 252.985 800 222 Weight 92 kg Intake: Intake, IV Titration 112.985 Amount Heparin Sod,Pork in 0.45% 112.985 NaCl 25,000 unit In 0.45 % NaCl 1 250ml.bag @ 10. 39 UNITS/KG/HR 9.991 mls/ hr IV .Q24H [facility] Rx#: [id number] Oral 240 1000 222 Output: Urine 100 200 Other: Voiding Method Bedside Commode Bedside Commode Bedside Commode # Voids 1 1 # Bowel Movements 1 - Exam Physical Exam: Revealed 80-year-old female in no distress. She is presently on room air. Head: Atraumatic, normocephalic. HEENT:[Neck is supple.] [No neck masses.] [No thyromegaly.] [No JVD.] Chest: [Clear throughout, fine crackles at the bases. Cardiac Exam: [Normal S1 and S2, no S3 gallop, 2/6 systolic murmur thought the precordium. Abdomen: [Soft, nontender, no megaly, no rebound, no guarding, normal bowel sounds.] Extremities: [No clubbing, no edema, no cyanosis.] Neurological Exam: [No focal neurologic deficit.] Alert oriented 3. Psychiatric: Normal mood, affect and normal mental status examination. Skin: No neck venous stasis changes and areas of ecchymosis in lower extremities - Labs CBC & Chem 7: 12/27/20 09:49 12/27/20 09:49 Labs: Abnormal Lab Results - Last 24 Hours (Table) 12/26/20 12/26/20 12/27/20 Range/Units 16:51 20:18 06:08 Lymphocytes # (1.0-4.8) k/uL Sodium (137-145) mmol/L Potassium (3.5-5.1) mmol/L BUN (7-17) mg/dL Creatinine (0.52-1.04) mg/dL Glucose (74-99) mg/dL POC Glucose (mg/dL) 215 H 163 H 153 H (75-99) mg/dL 12/27/20 12/27/20 12/27/20 Range/Units 09:49 09:49 11:37 Lymphocytes # 0.7 L (1.0-4.8) k/uL Sodium 136 L (137-145) mmol/L Potassium 3.3 L (3.5-5.1) mmol/L BUN 27 H (7-17) mg/dL Creatinine 1.20 H (0.52-1.04) mg/dL Glucose 141 H (74-99) mg/dL POC Glucose (mg/dL) 171 H (75-99) mg/dL Microbiology - Last 24 Hours (Table) 12/25/20 16:01 Blood Culture - Preliminary Blood No Growth after 24 hours 12/25/20 14:35 Blood Culture - Preliminary Blood No Growth after 24 hours Assessment and Plan Assessment: Impression: Acute covid 19 pneumonitis acute hypoxic respiratory failure secondary to above. Acute right sided pulmonary embolism, most likely provoked by her Covid 19 infection. New-onset atrial fibrillation secondary to pulmonary embolism Benign essential hypertension Hypothyroidism Type 2 diabetes with history of diabetic neuropathy. Recommendation: Continue present supportive care measures. Oral antiarrhythmic agents as per cardiology. Change heparin to eliquis Continue the Covid 19 cocktails. Patient is out of the window for remdesivir Continue Decadron. Will clear patient to be discharged home in the next 24 hours Time with Patient: Less than 30
[2020-12-27 17:15] LABS: Glucose,Whole Blood 149 mg/dL (75-99)
[2020-12-27 21:01] LABS: Glucose,Whole Blood 161 mg/dL (75-99)
[2020-12-27] MEDS: INSULIN DETEMIR (LEVEMIR) 100 UNIT/ML SYR SQ SCH (21:02)
[2020-12-28 05:06] VITALS: RESP 20
[2020-12-28 06:11] LABS: Glucose,Whole Blood 117 mg/dL (75-99)
[2020-12-28] MEDS: INSULIN ASPART (NovoLOG) 100 UNIT/ML VIAL SQ SCH ×2 (06:12→12:38)
[2020-12-28] MEDS: LEVOTHYROXINE 125 MCG TAB PO SCH (06:35)
[2020-12-28] MEDS: PANTOPRAZOLE 40 MG TABLET PO SCH (06:35)
[2020-12-28 08:42] LABS: Basophils % (A) 0 %; Eosinophils % (A) 1 %; HCT 32.9 % (34.0-46.0); HGB 11.8 gm/dL (11.4-16.0); Lymphocytes # (A) 0.4 k/uL (1.0-4.8); Lymphocytes % (A) 13 %; MCH 31.6 pg (25.0-35.0); MCHC 35.8 g/dL (31.0-37.0); MCV 88.3 fL (80.0-100.0); Monocytes # (A) 0.2 k/uL (0-1.0); Monocytes % (A) 5 %; Neutrophils # (A) 2.6 k/uL (1.3-7.7); Neutrophils % (A) 80 %; Platelet Count 120 k/uL (150-450); RBC 3.73 m/uL (3.80-5.40); RDW 15.1 % (11.5-15.5); WBC 3.2 k/uL (3.8-10.6)
[2020-12-28 09:04] LABS: Calcium 8.6 mg/dL (8.4-10.2); Magnesium 1.9 mg/dL (1.6-2.3); Phosphorus 3.4 mg/dL (2.5-4.5); Total Bilirubin 0.8 mg/dL (0.2-1.3)
[2020-12-28 09:33] LABS: Total Protein 6.4 g/dL (6.3-8.2)
[2020-12-28] MEDS: ATORVASTATIN 10 MG TAB PO SCH (10:05)
[2020-12-28] MEDS: CITALOPRAM HYDROBROMIDE 20 MG TAB PO SCH (10:06)
[2020-12-28] MEDS: ASPIRIN 81 MG PO SCH (10:06)
[2020-12-28] MEDS: METOPROLOL SUCCINATE (ER) 25 MG TAB.ER.24H PO SCH (10:06)
[2020-12-28] MEDS: FUROSEMIDE 20 MG TAB PO SCH (10:06)
[2020-12-28] MEDS: DEXAMETHASONE SOD PHOSPHATE 10 MG/ML 1 ML VIAL IV SCH (10:07)
[2020-12-28] MEDS: lisinopriL 5 MG TAB PO SCH (10:07)
[2020-12-28] MEDS: APIXABAN 5 MG TAB PO SCH (10:07)
[2020-12-28 11:14] VITALS: TEMP 97.5
[2020-12-28 11:45] LABS: Glucose,Whole Blood 147 mg/dL (75-99)
--- NOTE | 2020-12-28 12:45 | P.DS ---
Providers Date of admission: 12/25/20 16:39 Expected date of discharge: 12/28/20 Attending physician: Apurva Tolliver Consults: 12/25/20 16:40 Consult Physician Routine Consulting Provider: Quincy Rosenberg Consult Reason/Comments: Rapid atrial fibrillation Do you want consulting provider notified?: Yes 12/25/20 18:32 Consult Physician Routine Consulting Provider: Amanda Romero Consult Reason/Comments: pe Do you want consulting provider notified?: Yes Primary care physician: [facility] Course: 80-year-old female who presents for weakness, shortness of breath, nausea. No chest pain. Patient was diagnosed with Covid 19 about a week ago at this facility. She did mention having 2 loose bowel movements. She also states she fell about 2-3 weeks ago and does have some bruising to her right chest wall and right arm as well as a lot of bruising to her lower extremities. No history of heart or lung disease. Evaluation in the emergency department revealed heart rate in the 120s. EKG showed atrial fibrillation with rapid ventricular response. Blood pressure okay. Labs were reviewed. CT angiogram of the chest showed right pulmonary artery pulmonary embolus. Patient was started on Cardizem and heparin drips and was admitted for further evaluation and management. Upon admission she was seen by cardiology as well as pulmonary. She was started on Decadron for covid 19 pneumonia treatment. After 48 hours of heparin was discontinued and she was started on eliquis for AC. In addition to that the cardizem was switched to metoprolol by cardiology. Her HR and oxygenation remained stable. D/w cardiology who is ok with discharge. She is currently weak, will require further rehab. Will be discharged to rehab in a stable condition. Time for discharge 35 min Patient Condition at Discharge: Fair Plan - Discharge Summary Discharge Rx Participant: Yes New Discharge Prescriptions: New Metoprolol Succinate (ER) [Toprol XL] 25 mg PO DAILY 30 Days #30 tab.er.24h Dexamethasone [Decadron] 4 mg PO DAILY 6 Days #6 tablet Apixaban [Eliquis Starter Pack (for VTE)] 0 mg PO DIRECTED 30 Days #1 pack Continue Simvastatin [Zocor] 20 mg PO DAILY Levothyroxine Sodium [Levoxyl] 125 mcg PO DAILY Omeprazole 20 mg PO DAILY metFORMIN HCL [Glucophage] 500 mg PO DAILY ALPRAZolam [Xanax] 0.25 mg PO BID PRN PRN Reason: Anxiety traMADol HCL [Ultram] 50 mg PO TID PRN PRN Reason: Mild Pain Aspirin EC [Ecotrin Low Dose] 81 mg PO DAILY Citalopram Hydrobromide [CeleXA] 20 mg PO DAILY lisinopriL [Zestril] 5 mg PO DAILY Albuterol Sulfate [Ventolin HFA] 2 puff INHALATION RT-Q4H PRN PRN Reason: Shortness Of Breath Benzonatate [Tessalon Perles] 100 mg PO TID PRN PRN Reason: Cough Furosemide [Lasix] 20 mg PO DAILY Triamcinolone 0.1% Cream [Kenalog 0.1% Cream] 1 applicatio TOPICAL TID Discharge Medication List ALPRAZolam [Xanax] 0.25 mg PO BID PRN 02/10/17 [History] Levothyroxine Sodium [Levoxyl] 125 mcg PO DAILY 02/10/17 [History] Omeprazole 20 mg PO DAILY 02/10/17 [History] Simvastatin [Zocor] 20 mg PO DAILY 02/10/17 [History] metFORMIN HCL [Glucophage] 500 mg PO DAILY 02/10/17 [History] traMADol HCL [Ultram] 50 mg PO TID PRN 02/10/17 [History] Albuterol Sulfate [Ventolin HFA] 2 puff INHALATION RT-Q4H PRN 12/25/20 [History] Aspirin EC [Ecotrin Low Dose] 81 mg PO DAILY 12/25/20 [History] Benzonatate [Tessalon Perles] 100 mg PO TID PRN 12/25/20 [History] Citalopram Hydrobromide [CeleXA] 20 mg PO DAILY 12/25/20 [History] Furosemide [Lasix] 20 mg PO DAILY 12/25/20 [History] Triamcinolone 0.1% Cream [Kenalog 0.1% Cream] 1 applicatio TOPICAL TID 12/25/20 [History] lisinopriL [Zestril] 5 mg PO DAILY 12/25/20 [History] Apixaban [Eliquis Starter Pack (for VTE)] 0 mg PO DIRECTED 30 Days #1 pack 03/31/21 [Rx] Dexamethasone [Decadron] 4 mg PO DAILY 6 Days #6 tablet 12/28/20 [Rx] Metoprolol Succinate (ER) [Toprol XL] 25 mg PO DAILY 30 Days #30 tab.er.24h 12/28/20 [Rx] Follow up Appointment(s)/Referral(s): Deena Monsalve MD [Primary Care Provider] - 1-2 days
--- NOTE | 2020-12-28 12:49 | P.PN ---
Subjective Progress Note Date: 12/28/20 CHIEF COMPLAINT: A. lara with RVR HISTORY OF PRESENT ILLNESS: 12/26/2020 This is a 80-year-old female with a past medical history significant for diabetes mellitus, hypertension, hypothyroidism, and depression. 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 We have been asked to see the patient in consultation for Martita bermudez with RVR. Patient is admitted to the hospital secondary to Covid 19. EKG on admission revealed atrial fibrillation with RVR. Patient does not have a history of atrial fibrillation. Patient was started on IV heparin and IV Cardizem. Patient remains in atrial fibrillation this morning with a heart rate in the 60s. blood pressure 105/73. Patient is on 2 L nasal cannula with oxygen saturations greater than 92%. She is afebrile. EKG reveals atrial fibrillation with RVR Chest xray cardiomegaly and interstitial/vascular prominence. Correlate for CHF with pulmonary vascular congestion Laboratory data: WBC 2.2. Hemoglobin 12.1. Platelet count 110. Sodium 135. Potassium 4.2. BUN 25. Creatinine 1.02. CTA: Large pulmonary embolism and right lower lobe pulmonary artery. No evidence of right heart strain. Current home cardiac medications include lisinopril 5 mg daily, simvastatin 20 mg daily, Lasix 20 mg daily, aspirin 81 mg daily 12/27/2020 Patient has been transitioned to Eliquis. IV heparin has been discontinued. Echocardiogram revealed ejection fraction 55% with no documented evidence of right heart strain. She remains in atrial fibrillation with controlled ventricular rate. blood pressure 128/80. She is afebrile. She is on room air with oxygen saturations greater than 92%. 12/28/2020 Patient remains in atrial fibrillation with controlled ventricular rate. She remains on Eliquis and metoprolol. Blood pressure 134/78. She is on room air with oxygen saturations greater than 92%. PHYSICAL EXAM: Thorough physical exam not completed secondary to limited evaluation/examination and due to Covid19 ASSESSMENT: Covid 19 New-onset atrial fibrillation with RVR Large right sided pulmonary embolism Hypertension Diabetes mellitus Hypothyroidism PLAN: continue metoprolol succinate 25mg daily continue anticoagulation with Eliquis Continue telemetry monitoring Patient is stable for discharge from a cardiac standpoint. She is to follow up on an outpatient basis with Dr. Rosenberg Nurse practitioner note has been reviewed by physician. Signing provider agrees with the documented findings, assessment, and plan of care. Objective - Vital Signs Vital signs: Vital Signs Temp 97.5 F L 12/28/20 08:00 Pulse 78 12/28/20 08:00 Resp 20 12/28/20 08:00 BP 130/80 12/28/20 08:00 Pulse Ox 96 12/28/20 08:00 Intake & Output 12/27/20 12/28/20 12/28/20 18:59 06:59 18:59 Intake Total 462 960 240 Output Total 300 Balance 162 960 240 Weight 94 kg Intake: Oral 462 960 240 Output: Urine 300 Other: Voiding Method Bedside Commode Toilet Toilet # Voids 1 1 # Bowel Movements 1 - Labs CBC & Chem 7: 12/28/20 08:27 12/28/20 08:27 Labs: Abnormal Lab Results - Last 24 Hours (Table) 12/27/20 12/27/20 12/28/20 Range/Units 17:09 20:59 06:09 WBC (3.8-10.6) k/uL RBC (3.80-5.40) m/uL Hct (34.0-46.0) % Plt Count (150-450) k/uL Lymphocytes # (1.0-4.8) k/uL BUN (7-17) mg/dL Creatinine (0.52-1.04) mg/dL Glucose (74-99) mg/dL POC Glucose (mg/dL) 149 H 161 H 117 H (75-99) mg/dL Albumin (3.5-5.0) g/dL 12/28/20 12/28/20 12/28/20 Range/Units 08:27 08:27 11:31 WBC 3.2 L (3.8-10.6) k/uL RBC 3.73 L (3.80-5.40) m/uL Hct 32.9 L (34.0-46.0) % Plt Count 120 L (150-450) k/uL Lymphocytes # 0.4 L (1.0-4.8) k/uL BUN 29 H (7-17) mg/dL Creatinine 1.08 H (0.52-1.04) mg/dL Glucose 116 H (74-99) mg/dL POC Glucose (mg/dL) 147 H (75-99) mg/dL Albumin 3.0 L (3.5-5.0) g/dL Microbiology - Last 24 Hours (Table) 12/25/20 16:01 Blood Culture - Preliminary Blood No Growth after 48 hours 12/25/20 14:35 Blood Culture - Preliminary Blood No Growth after 48 hours
[2020-12-28 14:07] VITALS: BP 146/86; PULSE 80
== END 2020-12-28 14:50 | DRG 175 ==
LOC: EC 13:58 → 3SCARD 16:39
PROVIDERS: ADMIT Internal Medicine; ATTEND Internal Medicine
DX: I26.99 Other pulmonary embolism without acute cor pulmonale (principal); U07.1 COVID-19; J96.01 Acute respiratory failure with hypoxia; J12.82 Pneumonia due to coronavirus disease 2019; I48.91 Unspecified atrial fibrillation; Z79.890 Hormone replacement therapy; Z79.82 Long term (current) use of aspirin; E86.0 Dehydration; R62.7 Adult failure to thrive; Z79.4 Long term (current) use of insulin; E03.9 Hypothyroidism, unspecified; I11.9 Hypertensive heart disease without heart failure; Z82.49 Family history of ischemic heart disease and other diseases of the circulatory system; E11.40 Type 2 diabetes mellitus with diabetic neuropathy, unspecified; E87.6 Hypokalemia; F32.9 Major depressive disorder, single episode, unspecified; E78.00 Pure hypercholesterolemia, unspecified; H91.90 Unspecified hearing loss, unspecified ear; Z82.5 Family history of asthma and other chronic lower respiratory diseases
CPT/HCPCS: 36415; 71046; 71275; 80048; 80053; 81001; 82550; 82728; 83605; 83615; 83735; 83880; 84100; 84145; 84484; 85025; 85379; 85610; 85730; 86140; 87040; 87635; 93005; 93306; 96361; 96374; 99291

== ENCOUNTER → 2021-03-12 | Outpatient (CLI) | payer MEDICARE ==
[2021-03-12 22:34] LABS: African American GFR (CKD) 49.4 (60.0-200.0); Albumin 3.9 g/dL (3.80-4.90); Albumin/Globulin Ratio 1.26 (1.60-3.17); Anion Gap 9.7 mmol/L (4.00-12.00); BUN/Creat Ratio 15.83 Ratio (12.00-20.00); Carbon Dioxide 27.3 mmol/L (21.6-31.8); Globulin 3.1 g/dL (1.6-3.3); Non-African American GFR(CKD) 42.6 (60.0-200.0); Potassium 3.5 mmol/L (3.5-5.5); Total Bilirubin 1.1 mg/dL (0.3-1.2)
[2021-03-12 22:41] LABS: T4, Free (Free Thyroxine) 1.5 ng/dL (0.80-1.80)
== END | disposition home or self-care (01) ==
LOC: LABWHC1 13:59
PROVIDERS: ATTEND Psychiatry & Neurology Neurology
DX: R41.3 Other amnesia (principal); R26.81 Unsteadiness on feet; G60.9 Hereditary and idiopathic neuropathy, unspecified
CPT/HCPCS: 36415; 80053; 82306; 82607; 83036; 84439; 84443

== ENCOUNTER → 2021-05-21 | Outpatient (CLI) | payer MEDICARE ==
--- NOTE | 2021-05-21 17:43 | CONS ---
CONSULTATION REASON FOR CONSULTATION: Hypersomnia. HISTORY OF PRESENT ILLNESS: This is an 80-year-old female patient who was referred to me for sleep apnea evaluation. The patient was undergoing a recent neurology evaluation by Dr. Hunt. She was having some issues with memory loss. The daughter tells me that the patient has been having difficulties in remembering the date or even taking her own medication. This was quite concerning and for that reason, the patient was referred to Dr. Hunt for further evaluation. Note that the patient was also treated for a Covid 19 related infection/pneumonia back in December of 2020, and since then her condition has gotten slightly worse. She lives independently at home. She has some degree of hypersomnia. Her current [place] score is at 12. The patient was suspected to have underlying sleep breathing disorder and she was referred to me. The rest of the neurologic workup has been essentially unremarkable per Neurology. In summary, the patient has history of snoring. She has an irregular sleep schedule as the patient is currently retired and she is living independently at home and she can fall asleep at any time she wants to and as such she is taking naps throughout the day. Her sleep at night is obviously fragmented. She wakes up tired and she has problems with concentration memory and hypersomnia. [place] score is at 12. At nighttime, her sleep is in order of 4-5 hours only. No recent weight gain or weight loss. She does snore. Patient denies waking up from sleep, choking or gasping for air. No sleep paralysis. No hallucinations. No cataplexy. No substance abuse. No head trauma. No anxiety or depression. No previous history of cerebrovascular accident. PAST MEDICAL HISTORY: 1. Covid 19 pneumonia. 2. Pulmonary embolism occurred during Covid 19. 3. Atrial fibrillation, chronic. 4. Depression. 5. Diabetes mellitus. 6. Hypertension. 7. Hypothyroidism. 8. Peripheral neuropathy. 9. Previous history of UTI. PAST SURGICAL HISTORY: Cholecystectomy. DRUG ALLERGIES: ADHESIVE TAPES, PENICILLIN SHOTS. OUTPATIENT MEDICATION: Includes Eliquis, citalopram, Lasix, levothyroxine, Omeprazole, simvastatin, lisinopril and metoprolol. SOCIAL HISTORY: The patient is a nonsmoker. She is retired. 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 She drinks around 2 glasses of Coca-Cola on a daily basis. She is a lifetime nonsmoker. Drinks alcohol rarely. No substance abuse. She currently resides at home. Her highest level of education was 1 year of college. FAMILY HISTORY: Mother is . Family history is positive for CVA, heart disease, hypertension and thyroid disease, degenerative arthritis and depression and diabetes mellitus. REVIEW OF SYSTEMS: Fourteen-point review of system was done. Positive findings are mentioned in history of present illness. PHYSICAL EXAMINATION: BP is 131/82, pulse 108, respirations 16, temperature 98.4, saturation 96% on room air. Height is 5' 0", weight is 210. BMI is 40.1. Neck size 14.5 inches. GENERAL appearance: Obese, calm and comfortable. HEAD: Atraumatic, normocephalic. NECK: Supple. No JVD. No goiter or neck masses. Very poor dental condition. Multiple missing teeth. Mallampati class 4 with crowding in posterior pharynx. Uvula is not seen. LUNGS diminished, otherwise clear. HEART: Heart sounds are irregular. Positive S1, S2. No S3, S4. No murmurs. ABDOMEN: Soft, nontender. No organomegaly. Obese. EXTREMITIES: There is trace edema and there is no cyanosis or clubbing. NEUROLOGIC exam: The patient has intact cranial nerves. Normal motor function. Normal reflexes. IMPRESSION: 1. Memory loss, amnesia, currently under investigation. Initial neuro workup was done and essentially unremarkable. Note that the patient was infected with Covid 19. Her symptoms got slightly worse. This could be related to a condition related to Covid 19 and post Covid 19 related syndrome/Covid 19 related fog. At the same time, the patient has a very irregular sleep schedule which probably is contributing to her daytime inattentiveness and diminished level of concentration and memory and hypersomnia. Obviously, the abnormal sleep schedule that she is maintaining has affected her daytime functionality. This needs to be further regulated. In addition to that, a possibility of obstructive sleep apnea needs to be ruled out. 2. Covid 19 related infection/pneumonia. 3. History of pulmonary embolism, on anticoagulation. 4. Chronic atrial fibrillation, maintained on anticoagulation. 5. Depression. 6. Diabetes mellitus. 7. Hypertension. 8. Hypothyroidism. 9. Previous history of urinary tract infection. PLAN: 1. Very important for this patient to regulate sleep schedule. Best time to go to sleep is between 11:00 pm and 7:00 am in the morning. She will try to maintain a regular schedule and eliminate all naps during the day. Keeping herself busy during the day and getting herself a hobby or indulging herself into some activities may prevent her from taking naps throughout the day. 2. Optimize sleep hygiene measures. This has been discussed with the patient at length. 3. Neuro workup are unremarkable. 4. Will proceed with a screening polysomnogram and see there is any sleep breathing disorder to treat. 5. We will continue to follow. MMODL / IJN: [id number] /
== END | disposition home or self-care (01) ==
LOC: SLEEP 13:56
PROVIDERS: ATTEND Internal Medicine Critical Care Medicine
DX: R41.3 Other amnesia (principal); I48.20 Chronic atrial fibrillation, unspecified; Z79.01 Long term (current) use of anticoagulants; F32.9 Major depressive disorder, single episode, unspecified; I10 Essential (primary) hypertension; E11.9 Type 2 diabetes mellitus without complications; E03.9 Hypothyroidism, unspecified; Z87.440 Personal history of urinary (tract) infections; Z86.79 Personal history of other diseases of the circulatory system
CPT/HCPCS: 99211

== ENCOUNTER → 2021-09-04 | Outpatient (CLI) | payer MEDICARE ==
[2021-09-04 17:12] LABS: Creatine Kinase MB 1.7 ng/mL (0.0-2.4); Troponin I <0.012 ng/mL (0.000-0.034)
[2021-09-04 17:22] LABS: Appearance,Urine Clear (Clear); Bilirubin,Urine Negative (Negative); Blood,Urine Trace (Negative); Color,Urine Light Yellow; Glucose,Urine (UA) Negative (Negative); Ketones,Urine Negative (Negative); Leukocyte Esterase,Urine Trace (Negative); Mucus,Urine Rare /hpf; Nitrite,Urine Negative (Negative); Protein,Urine Negative (Negative); RBC,Urine <1 /hpf (0-5); Specific Gravity,Urine 1.007 (1.001-1.035); Squamous Epithelial Cell,Urine 2 /hpf (0-4); Urobilinogen,Urine <2.0 mg/dL (<2.0); WBC,Urine 5 /hpf (0-5)
[2021-09-05 00:30] LABS: Basophils # (A) 0.01 X 10*3/uL (0.00-0.10); Basophils % (A) 0.3 %; Eosinophils # (A) 0.06 X 10*3/uL (0.04-0.35); HCT 37.1 % (37.2-46.3); HGB 12.1 g/dL (12.0-15.0); Lymphocytes # (A) 1.22 X 10*3/uL (0.90-5.00); Lymphocytes % (A) 40.4 %; MCH 29.7 pg (27.0-32.0); MCHC 32.6 g/dL (32.0-37.0); MCV 90.9 fL (80.0-97.0); Monocytes % (A) 6.6 %; Neutrophils # (A) 1.52 X 10*3/uL (1.80-7.70); Neutrophils % (A) 50.4 %; Platelet Count 103 X 10*3/uL (140-440); RBC 4.08 X 10*6/uL (4.10-5.20); WBC 3.02 X 10*3/uL (4.50-10.00)
[2021-09-05 04:19] LABS: Microalbumin Creatinine Ratio <30 mg/g Creat (0-30); Urine Creatinine 22.9 mg/dL (28.0-217.0)
[2021-09-05 04:50] LABS: % Iron Saturation 19.25 (12.00-45.00); African American GFR (CKD) 53.7 (60.0-200.0); Albumin 4.3 g/dL (3.8-4.9); Albumin/Globulin Ratio 1.41 (1.60-3.17); Anion Gap 11.3 mmol/L (10.00-18.00); BUN/Creat Ratio 15.98 Ratio (12.00-20.00); Blood Urea Nitrogen 17.9 mg/dL (9.0-27.0); Calcium 9.6 mg/dL (8.7-10.3); Carbon Dioxide 25.6 mmol/L (20.0-27.5); Ferritin 33.4 ng/mL (10.0-291.0); Globulin 3.1 g/dL (1.6-3.3); Magnesium 2.1 mg/dL (1.5-2.4); Non-African American GFR(CKD) 46.4 (60.0-200.0); Phosphorus 3.8 mg/dL (2.4-5.1); Potassium 3.9 mmol/L (3.5-5.5); Total Bilirubin 1.1 mg/dL (0.30-1.20); Total Protein 7.4 g/dL (6.2-8.2); Uric Acid 6.2 mg/dL (2.9-7.7)
[2021-09-05 05:12] LABS: Folate, Serum 10.1 ng/mL (4.40-31.00); T4, Free (Free Thyroxine) 1.58 ng/dL (0.800-1.800)
--- NOTE | 2021-09-05 06:50 | XR ---
EXAMINATION TYPE: XR chest 2V DATE OF EXAM: 09/04/2021 HISTORY: Shortness of breath. COMPARISON: 12/25/2020 TECHNIQUE: Single view of the chest is submitted. FINDINGS: Demonstrated are scattered senescent parenchymal change. There is no evidence for focal infiltrate. The heart is stable. Hilar and mediastinal structures are within normal limits. Degenerative changes are seen of the dorsal spine. IMPRESSION: 1. Chronic changes without evidence for acute pulmonary disease.
== END | disposition home or self-care (01) ==
LOC: LABWHC1 15:56
PROVIDERS: ATTEND Family Medicine
DX: R07.9 Chest pain, unspecified (principal); R06.02 Shortness of breath; E78.5 Hyperlipidemia, unspecified; D64.9 Anemia, unspecified; I48.91 Unspecified atrial fibrillation; I12.9 Hypertensive chronic kidney disease with stage 1 through stage 4 chronic kidney disease, or unspecified chronic kidney disease; N18.9 Chronic kidney disease, unspecified; E11.9 Type 2 diabetes mellitus without complications
CPT/HCPCS: 36415; 71046; 80053; 81001; 82043; 82306; 82550; 82553; 82570; 82607; 82728; 82746; 83036; 83540; 83550; 83615; 83735; 83880; 83970; 84100; 84439; 84443; 84480; 84484; 84550; 85025; 86038; 87086

== ENCOUNTER → 2022-06-03 | Outpatient (CLI) | payer MEDICARE ==
[2022-06-04 13:21] LABS: Basophils % (A) 0 %; Eosinophils # (A) 0.1 k/uL (0-0.7); Eosinophils % (A) 2 %; HCT 39.7 % (34.0-46.0); HGB 12.7 gm/dL (11.4-16.0); Lymphocytes # (A) 0.9 k/uL (1.0-4.8); Lymphocytes % (A) 31 %; MCH 30.3 pg (25.0-35.0); MCHC 31.9 g/dL (31.0-37.0); MCV 95.1 fL (80.0-100.0); Mean Platelet Volume 9.9; Monocytes # (A) 0.2 k/uL (0-1.0); Monocytes % (A) 7 %; Neutrophils # (A) 1.7 k/uL (1.3-7.7); Neutrophils % (A) 58 %; RBC 4.18 m/uL (3.80-5.40); RDW 14.2 % (11.5-15.5)
[2022-06-04 13:26] LABS: Platelet Count 96 k/uL (150-450)
[2022-06-04 18:44] LABS: Hepatitis A Antibody IgM Nonreactive (Nonreactive); Hepatitis B Core IgM Nonreactive (Nonreactive); Hepatitis B Surface Antigen Nonreactive (Nonreactive); Hepatitis C IgG Antibody Nonreactive (Nonreactive)
[2022-06-04 18:55] LABS: Protein, Total 6.7 g/dL (6.2-8.2)
[2022-06-04 19:05] LABS: T4, Free (Free Thyroxine) 1.09 ng/dL (0.800-1.800)
[2022-06-06 12:56] LABS: Albumin 3.69 g/dL (3.80-4.90); Gamma Globulin 1.28 g/dL (0.70-1.50)
== END | disposition home or self-care (01) ==
LOC: LABWHC1 22:17
PROVIDERS: ATTEND Internal Medicine
DX: D72.819 Decreased white blood cell count, unspecified (principal); E03.9 Hypothyroidism, unspecified
CPT/HCPCS: 36415; 80074; 82607; 83615; 84165; 84439; 84443; 85025; 86038

== ENCOUNTER → 2022-06-06 | Outpatient (CLI) | payer MEDICARE ==
[2022-06-06 16:30] LABS: Basophils % (A) 0 %; Eosinophils # (A) 0.1 k/uL (0-0.7); Eosinophils % (A) 2 %; HCT 39.9 % (34.0-46.0); HGB 13.1 gm/dL (11.4-16.0); Lymphocytes # (A) 1.1 k/uL (1.0-4.8); Lymphocytes % (A) 38 %; MCH 30.4 pg (25.0-35.0); MCHC 32.8 g/dL (31.0-37.0); MCV 92.4 fL (80.0-100.0); Mean Platelet Volume 8.1; Monocytes # (A) 0.1 k/uL (0-1.0); Monocytes % (A) 5 %; Neutrophils # (A) 1.5 k/uL (1.3-7.7); Neutrophils % (A) 54 %; RBC 4.32 m/uL (3.80-5.40); RDW 14.2 % (11.5-15.5); WBC 2.8 k/uL (3.8-10.6)
[2022-06-06 16:34] LABS: Platelet Count 94 k/uL (150-450)
[2022-06-06 23:38] LABS: T4, Free (Free Thyroxine) 0.96 ng/dL (0.800-1.800)
[2022-06-07 01:57] LABS: Hepatitis A Antibody IgM Nonreactive (Nonreactive); Hepatitis B Core IgM Nonreactive (Nonreactive); Hepatitis B Surface Antigen Nonreactive (Nonreactive); Hepatitis C IgG Antibody Nonreactive (Nonreactive)
[2022-06-07 02:02] LABS: Protein, Total 6.7 g/dL (6.2-8.2)
== END | disposition home or self-care (01) ==
LOC: LABWHC1 14:47
PROVIDERS: ATTEND Internal Medicine
DX: D72.819 Decreased white blood cell count, unspecified (principal)
CPT/HCPCS: 36415; 80074; 82607; 83615; 84165; 84439; 84443; 85025; 86038

== ENCOUNTER 2022-06-15 16:56 | Emergency (ER) | payer MEDICARE ==
[2022-06-15 17:08] VITALS: RESP 16; TEMP 97.8
--- NOTE | 2022-06-15 17:21 | ED ---
Chest Pain HPI - General Chief Complaint: Chest Pain Stated Complaint: chest pain, AFIB Time Seen by Provider: 06/15/22 17:05 Source: patient Mode of arrival: ambulatory Limitations: no limitations - History of Present Illness Initial Comments: 81-year-old female past medical history of diabetes, hypertension, A. fib presents to the emergency department for chest pain. States that she began having intermittent chest pain which started earlier this afternoon. Denies any provocative factors. Pain has been constant and described as an achy sensation which is mild. She did inform her daughter this he decided to bring her into the emergency room. Patient has not taken her medications only this week. She reports that she does not like taking medications and therefore frequently forgets. Daughter did administer the medications prior to coming into the hospital the patient states that her symptoms are gone upon my evaluation. She denies any recent fevers, chills or cough. No nausea or vomiting. No history of coronary disease. No other alleviating, precipitating or modifying factors - Related Data Home Medications Medication Instructions Recorded Confirmed ALPRAZolam [Xanax] 0.25 mg PO DAILY PRN 02/10/17 06/15/22 Omeprazole 20 mg PO DAILY 02/10/17 06/15/22 Simvastatin [Zocor] 20 mg PO HS 02/10/17 06/15/22 lisinopriL [Zestril] 5 mg PO DAILY 12/25/20 06/15/22 Acetaminophen [Tylenol Arthritis] 650 - 1,300 mg PO Q8H PRN 06/15/22 06/15/22 Eliquis(Unknown Dose) 1 tab PO BID 06/15/22 06/15/22 Levothyroxine Sodium 137 mcg PO DAILY 06/15/22 06/15/22 Metoprolol Succinate [Toprol XL] 50 mg PO HS 06/15/22 06/15/22 Sertraline [Zoloft] 25 mg PO DAILY 06/15/22 06/15/22 Vitamin D3(Unknown) 1 tab PO DAILY 06/15/22 06/15/22 Allergies Allergy/AdvReac Type Severity Reaction Status Date / Time Iodinated Contrast Media Allergy Rash/Hives Verified 06/15/22 18:52 Penicillins Allergy Rash/Hives Verified 06/15/22 18:52 tetanus and diphtheria Allergy Swelling & Verified 06/15/22 18:52 toxoids Rash at injection site adhesive tape AdvReac Tears skin Verified 06/15/22 18:52 Review of Systems ROS Statement: Those systems with pertinent positive or pertinent negative responses have been documented in the HPI. ROS Other: All systems not noted in ROS Statement are negative. EKG Findings - EKG Comments: EKG Findings:: EKG demonstrates A. fib with a rate of 97. QRS 106. QTC of 407. No acute ST segment elevations or depressions Past Medical History Past Medical History: Diabetes Mellitus, Eye Disorder, Hearing Disorder / Deafness, Hypertension, Thyroid Disorder Additional Past Medical History / Comment(s): WEARS GLASSES, HX BRONCHITIS, HARD OF HEARING, ARTHRITIS IN BACK History of Any Multi-Drug Resistant Organisms: None Reported Past Surgical History: Cholecystectomy, Orthopedic Surgery Additional Past Surgical History / Comment(s): EXPLORATORY AFTER GALLBLADDER- 1968, TOTAL RT KNEE, TOTAL LT KNEE, ROTATOR CUFF RT SHOULDER, CYSTS REMOVED LT W RIST, HIGH CHOLESTEROL, PANCYTOPENIA Past Anesthesia/Blood Transfusion Reactions: No Reported Reaction Additional Past Anesthesia/Blood Transfusion Reaction / Comment(s): never had blood Past Psychological History: Depression Smoking Status: Never smoker Past Alcohol Use History: None Reported Past Drug Use History: None Reported - Past Family History Father Family Medical History: Coronary Artery Disease (CAD), Myocardial Infarction (AL) Mother Family Medical History: Asthma, Myocardial Infarction (AL) General Exam Limitations: no limitations General appearance: alert, in no apparent distress Head exam: Present: atraumatic, normocephalic, normal inspection Eye exam: Present: normal appearance, PERRL, EOMI. Absent: scleral icterus, conjunctival injection, periorbital swelling ENT exam: Present: normal exam, mucous membranes moist Neck exam: Present: normal inspection. Absent: tenderness, meningismus, lymphadenopathy Respiratory exam: Present: normal lung sounds bilaterally. Absent: respiratory distress, wheezes, rales, rhonchi, stridor Cardiovascular Exam: Present: regular rate, irregular rhythm, normal heart sounds. Absent: systolic murmur, diastolic murmur, rubs, gallop, clicks GI/Abdominal exam: Present: soft, normal bowel sounds. Absent: distended, tenderness, guarding, rebound, rigid Extremities exam: Present: normal inspection, full ROM, normal capillary refill. Absent: tenderness, pedal edema, joint swelling, calf tenderness Back exam: Present: normal inspection Neurological exam: Present: alert, oriented X3, CN II-XII intact Psychiatric exam: Present: normal affect, normal mood Skin exam: Present: warm, dry, intact, normal color. Absent: rash Course Vital Signs 06/15/22 06/15/22 17:04 19:38 Temperature 97.8 F Pulse Rate 92 84 Respiratory 16 16 Rate Blood Pressure 194/102 165/109 O2 Sat by Pulse 97 95 Oximetry Chest Pain MDM - MDM Upon arrival patient was placed in room 2. Thorough history and physical exam is performed. A 12-lead EKG is obtained. Patient placed on continuous pulse ox and cardiac monitoring. IV is established and laboratory studies were conducted. Patient is pain-free in the emergency department. I did review the patient's labs which demonstrates a chronic thrombocytopenia. She does follow with hematology. Troponin is negative. Chest x-ray demonstrates no acute process. Results are discussed with the patient. Continues to remain symptom- free. Patient would like to go home at this time. Did discuss the limitations of the evaluation in the emergency department without further workup. Patient understood the risks and continues to leave. Daughter is at bedside and is agreeable with her mother's decision. She is instructed. The primary care doctor in 2-4 days and return to the emergency room for any new or worsening symptoms. Patient discharged home in stable condition Disposition Clinical Impression: Chest pain, Afib Disposition: HOME SELF-CARE Condition: Stable Instructions (If sedation given, give patient instructions): A-fib (Atrial Fibrillation) (ED), Chest Pain (ED) Additional Instructions: Please follow-up with your primary care doctor in 2-4 days and return for any new or worsening symptoms Is patient prescribed a controlled substance at d/c from ED?: No Referrals: Garret Lancaster MD [Primary Care Provider] - 1-2 days Time of Disposition: 19:48
[2022-06-15 18:03] LABS: Basophils % (A) 0 %; Eosinophils # (A) 0.1 k/uL (0-0.7); Eosinophils % (A) 1 %; HCT 37.5 % (34.0-46.0); HGB 12.5 gm/dL (11.4-16.0); Lymphocytes # (A) 1.2 k/uL (1.0-4.8); Lymphocytes % (A) 35 %; MCHC 33.3 g/dL (31.0-37.0); MCV 90.1 fL (80.0-100.0); Mean Platelet Volume 7.9; Monocytes # (A) 0.2 k/uL (0-1.0); Monocytes % (A) 5 %; Neutrophils # (A) 1.9 k/uL (1.3-7.7); Neutrophils % (A) 56 %; RBC 4.17 m/uL (3.80-5.40); RDW 13.8 % (11.5-15.5); WBC 3.4 k/uL (3.8-10.6)
[2022-06-15 18:14] LABS: Calcium 9.9 mg/dL (8.4-10.2); INR 1.1 (<1.2); Magnesium 1.8 mg/dL (1.6-2.3); Partial Thromboplastin Time 24.9 sec (22.0-30.0); Potassium 3.9 mmol/L (3.5-5.1); Prothrombin Time 11.9 sec (9.0-12.0); Total Bilirubin 0.7 mg/dL (0.2-1.3)
[2022-06-15 18:27] LABS: Platelet Count 87 k/uL (150-450)
[2022-06-15 18:28] LABS: RBC Morphology Normal
--- NOTE | 2022-06-15 18:33 | XR ---
EXAMINATION TYPE: XR chest 2V DATE OF EXAM: 06/15/2022 COMPARISON: 09/04/2021 HISTORY: Chest pain TECHNIQUE: 2 views FINDINGS: Heart and mediastinum are within normal limits. Lungs are clear of infiltrate. There are no hilar masses. Bony thorax is intact. There are chest leads. IMPRESSION: No active cardiopulmonary disease. No change.
[2022-06-15 19:39] VITALS: BP 165/109; PULSE 84
== END 2022-06-15 20:38 | disposition home or self-care (01) ==
LOC: EC 16:56
DX: I48.91 Unspecified atrial fibrillation (principal); E11.9 Type 2 diabetes mellitus without complications; I10 Essential (primary) hypertension; H91.90 Unspecified hearing loss, unspecified ear; E07.9 Disorder of thyroid, unspecified; Z79.899 Other long term (current) drug therapy; Z91.041 Radiographic dye allergy status; Z88.0 Allergy status to penicillin; Z91.09 Other allergy status, other than to drugs and biological substances; Z91.048 Other nonmedicinal substance allergy status
CPT/HCPCS: 36415; 71046; 80053; 83690; 83735; 83880; 84484; 85025; 85610; 85730; 93005; 99285

== ENCOUNTER → 2023-12-09 | Outpatient (CLI) | payer MEDICARE ==
--- NOTE | 2023-12-09 14:47 | CT ---
EXAMINATION TYPE: CT brain wo con DATE OF EXAM: 12/09/2023 COMPARISON: 12/14/2020. HISTORY: Tinnitus unspecified ear. CT DLP: 1098.8 mGycm Automated exposure control for dose reduction was used. FINDINGS: There is no acute intracranial hemorrhage, mass, mass effect, midline shift, extra-axial fluid collec tion or hydrocephalus. No acute major vessel infarct is seen. The visualized paranasal sinuses and mastoid air cells are clear. IMPRESSION: NO ACUTE INTRACRANIAL PROCESS.
== END | disposition home or self-care (01) ==
LOC: RADCTMAIN 14:11
PROVIDERS: ATTEND Internal Medicine
DX: H93.19 Tinnitus, unspecified ear (principal)
CPT/HCPCS: 70450

== ENCOUNTER → 2024-01-13 | Outpatient (CLI) | payer MEDICARE ==
[2024-01-13 21:13] LABS: T4, Free (Free Thyroxine) 1.6 ng/dL (0.80-1.80)
== END | disposition home or self-care (01) ==
LOC: LABWHC1 15:26
PROVIDERS: ATTEND Internal Medicine
DX: E03.9 Hypothyroidism, unspecified (principal)
CPT/HCPCS: 36415; 84439; 84443

== ENCOUNTER → 2024-12-12 | Outpatient (CLI) | payer MEDICARE ==
[2024-12-12 21:14] LABS: Basophils # (A) 0.01 X 10*3/uL (0.00-0.10); Basophils % (A) 0.4 %; Eosinophils # (A) 0.04 X 10*3/uL (0.04-0.35); Eosinophils % (A) 1.7 %; HCT 36.9 % (37.2-46.3); HGB 11.9 g/dL (12.0-15.0); Immature Grans, Automated 0 %; Immature Platelet Fraction 6.1 % (1.1-6.1); Lymphocytes # (A) 0.91 X 10*3/uL (0.90-5.00); Lymphocytes % (A) 39.2 %; MCH 30.8 pg (27.0-32.0); MCHC 32.2 g/dL (32.0-37.0); MCV 95.6 FL (80.0-97.0); Mean Platelet Volume 11.2 FL (9.5-12.2); Monocytes % (A) 8.6 %; NRBC Per 100 WBC 0 X 10*3/uL (0.00-0.01); Neutrophils # (A) 1.16 X 10*3/uL (1.80-7.70); Neutrophils % (A) 50.1 %; Platelet Count 66 X 10*3/uL (140-440); RBC 3.86 X 10*6/uL (4.10-5.20); RBC Morphology Normal (Normal); RDW 12.8 % (11.5-14.5); WBC 2.32 X 10*3/uL (4.50-10.00)
[2024-12-12 21:29] LABS: ALT 18 U/L (8-44); AST 35 U/L (13-35); Albumin 3.7 g/dL (3.8-4.9); Albumin/Globulin Ratio 1.23 Ratio (1.60-3.17); Alkaline Phosphatase 95 U/L (41-126); BUN/Creat Ratio 15.78 Ratio (12.00-20.00); Blood Urea Nitrogen 14.2 mg/dL (9.0-27.0); Calcium 9.1 mg/dL (8.7-10.3); Carbon Dioxide 27.7 mmol/L (21.6-31.8); Chloride 105 mmol/L (96-109); Chol/HDL Ratio 2.51 Ratio; Glucose 100 mg/dL (70-110); LDL Cholesterol,Calculated 65.9 mg/dL (0.0-131.0); Magnesium 1.9 mg/dL (1.5-2.4); Potassium 3.9 mmol/L (3.5-5.5); Sodium 142 mmol/L (135-145); T4, Free (Free Thyroxine) 1.59 ng/dL (0.80-1.80); Total Bilirubin 0.8 mg/dL (0.3-1.2); Total Protein 6.7 g/dL (6.2-8.2); VLDL Calculation 16.04 mg/dL (5.00-40.00)
== END | disposition home or self-care (01) ==
LOC: LABWHC1 12:47
PROVIDERS: ATTEND Internal Medicine
DX: I48.91 Unspecified atrial fibrillation (principal); E78.5 Hyperlipidemia, unspecified; E55.9 Vitamin D deficiency, unspecified; E03.9 Hypothyroidism, unspecified; R73.9 Hyperglycemia, unspecified
CPT/HCPCS: 36415; 80053; 80061; 82306; 83036; 83735; 84439; 84443; 85025

== ENCOUNTER → 2024-12-27 | Outpatient (CLI) | payer MEDICARE ==
--- NOTE | 2024-12-27 14:16 | US ---
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 No nephrolithiasis is seen. No merlene s are identified. The urinary bladder is anechoic. IMPRESSION: No evidence for acute process. [facility], , 12/27/2024 2:13 PM
== END | disposition home or self-care (01) ==
LOC: RADUSWWP 13:30
PROVIDERS: ATTEND Internal Medicine
DX: R82.998 Other abnormal findings in urine (principal)
CPT/HCPCS: 76770